=== PATIENT | female | born 2000 | race Caucasian/White ===

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

== ENCOUNTER 2022-03-07 12:55 | Emergency (ER) | payer MEDICAID ==
--- OUTSIDE RECORDS SUMMARY | 2022-03-07 13:53 | EXTERNAL MEDICAL SUMMARY RPT | Continuity of Care Document ---
:2000 Author Organization [facility] Address [address] [place] [address] Phone Allergies and Intolerances date description facility type (no date) No Known Drug Allergies [facility] (unkn own) Encounters No information. Functional Status No information. Immunizations No information. Medications No information. Problems No information. Procedures date description facility [id number] [facility] Results/Labs test date author facility value unit interpret ation Result panel 1 (unknown) (no (unknown) (unknown) (no value) (units (unk nown) date) unknown) (unknown) (no (unknown) (unknown) Date of Service: (units (unknown) date) 12/18/21 unknown) (unknown) (no (unknown) (unknown) (no value) (units (unk nown) date) unknown) (unknown) (no (unknown) (unknown) 1 applic topical (units (unknown) date) TID Qty: 15 6RF unknown) (unknown) (no (unknown) (unknown) 25 mg PO QID PRN (units (unknown) date) (Reason: anxiety) unknown) Qty: 30 0RF (unknown) (no (unknown) (unknown) 40 mg PO DAILY (units (unknown) date) Qty: 14 0RF unknown) (unknown) (no (unknown) (unknown) 40 mg PO Q DAY 4 (units (unknown) date) Days Qty: 0 0RF unknown) (unknown) (no (unknown) (unknown) 500 mg PO Q8H (units ( unknown) date) Qty: 30 0RF unknown) (unknown) (no (unknown) (unknown) 875 mg PO Q12H (units (unknown) date) Qty: 3 0RF unknown) (unknown) (no (unknown) (unknown) Allergies (units (unkn own) date) unknown) (unknown) (no (unknown) (unknown) Emergency Report (units (unknown) date) unknown) (unknown) (no (unknown) (unknown) [facility] (units (unknown) date) [address] unknown) [place] [address] (unknown) (no (unknown) (unknown) Previous Rx's (units ( unknown) date) unknown) (unknown) (no (unknown) (unknown) Rx Instructions: (units (unknown) date) unknown) (unknown) (no (unknown) (unknown) to dry patches, (units (unknown) date) NOT including the unknown) face (unknown) (no (unknown) (unknown) (no value) (units (unk nown) date) unknown) (unknown) (no (unknown) (unknown) amoxicillin 500 (units (unknown) date) mg capsule unknown) (unknown) (no (unknown) (unknown) amoxicillin-pot (units (unknown) date) clavulanate unknown) [Augmentin] 875 MG/125 MG tablet (unknown) (no (unknown) (unknown) hydroxyzine HCl (units (unknown) date) 25 mg tablet unknown) (unknown) (no (unknown) (unknown) prednisone 20 MG (units (unknown) date) tablet unknown) (unknown) (no (unknown) (unknown) prednisone 20 mg (units (unknown) date) tablet unknown) (unknown) (no (unknown) (unknown) triamcinolone (units ( unknown) date) acetonide 0.5 % unknown) ointment (unknown) (no (unknown) (unknown) Medication (units (unk nown) date) Instructions unknown) Recorded (unknown) (no (unknown) (unknown) (Augmentin) (units (un known) date) unknown) (unknown) (no (unknown) (unknown) Age/Sex: 21 / F (units (unknown) date) unknown) (unknown) (no (unknown) (unknown) Allergy/AdvReac (units (unknown) date) Type Severity unknown) Reaction Status Date / Time (unknown) (no (unknown) (unknown) : 2000 (units (unknown) date) Acct:[id number] unknown) (unknown) (no (unknown) (unknown) Departure (units (unkn own) date) unknown) (unknown) (no (unknown) (unknown) Discharge Plan (units (unknown) date) unknown) (unknown) (no (unknown) (unknown) ER Physician: (units ( unknown) date) Shilpi Shook unknown) PICTURE COPYIST (unknown) (no (unknown) (unknown) Eczema (units (unkno wn) date) unknown) (unknown) (no (unknown) (unknown) Keerthi Oleary MD (units (unknown) date) [Primary Care unknown) Provider] - (unknown) (no (unknown) (unknown) General (units (unkno wn) date) unknown) (unknown) (no (unknown) (unknown) HPI - Female (units (u nknown) date) Genitourinary unknown) (unknown) (no (unknown) (unknown) [id number] (units (unk nown) date) unknown) (unknown) (no (unknown) (unknown) Medical History (units (unknown) date) (Reviewed unknown) 09/27/21 @ 08:22 by Bryon Cali MD) (unknown) (no (unknown) (unknown) No Action (units (unkn own) date) unknown) (unknown) (no (unknown) (unknown) No Known Drug (units ( unknown) date) Allergies Allergy unknown) Verified 12/18/21 12:41 (unknown) (no (unknown) (unknown) Patient History (units (unknown) date) unknown) (unknown) (no (unknown) (unknown) Patient: (units (unkno wn) date) Amanda Davis unknown) A MR#: (unknown) (no (unknown) (unknown) Prescriptions: (units (unknown) date) unknown) (unknown) (no (unknown) (unknown) Referrals: (units (unk nown) date) unknown) (unknown) (no (unknown) (unknown) Related Data (units (u nknown) date) unknown) (unknown) (no (unknown) (unknown) Right carpal (units (u nknown) date) tunnel syndrome unknown) (unknown) (no (unknown) (unknown) Seasonal (units (unkno wn) date) allergies unknown) (unknown) (no (unknown) (unknown) Signed By: (units (unk nown) date) unknown) (unknown) (no (unknown) (unknown) Stated (units (unkno wn) date) complaint: PELVIC unknown) PAIN FEELS LIKE IUD IS OUT OF PLACE (unknown) (no (unknown) (unknown) Substance Use (units ( unknown) date) Type: does not unknown) use (unknown) (no (unknown) (unknown) Time Seen by (units (u nknown) date) Provider: unknown) 12/18/21 12:39 (unknown) (no (unknown) (unknown) alcohol intake (units (unknown) date) frequency: other unknown) (unknown) (no (unknown) (unknown) amoxicillin 500 (units (unknown) date) mg capsule 500 mg unknown) PO Q8H #30 cap 01/01/19 (unknown) (no (unknown) (unknown) amoxicillin 875 (units (unknown) date) mg-potassium 875 unknown) mg PO Q12H #3 tab 12/05/17 (unknown) (no (unknown) (unknown) clavulanate 125 (units (unknown) date) mg tablet unknown) (unknown) (no (unknown) (unknown) hydroxyzine HCl (units (unknown) date) 25 mg tablet 25 unknown) mg PO QID PRN #30 tab 07/08/21 (unknown) (no (unknown) (unknown) prednisone 20 mg (units (unknown) date) tablet 40 mg PO unknown) DAILY #14 tab 07/08/21 (unknown) (no (unknown) (unknown) prednisone 20 mg (units (unknown) date) tablet 40 mg PO Q unknown) DAY 4 Days #0 tab 12/05/17 (unknown) (no (unknown) (unknown) tobacco type: (units ( unknown) date) cigarettes and unknown) vaping (unknown) (no (unknown) (unknown) topical ointment (units (unknown) date) unknown) (unknown) (no (unknown) (unknown) triamcinolone (units ( unknown) date) acetonide 0.5 % 1 unknown) applic TOPICAL TID #15 g 07/08/21 Result panel 2 (unknown) (no (unknown) (unknown) (no value) (units (unk nown) date) unknown) (unknown) (no (unknown) (unknown) Date of Service: (units (unknown) date) 12/18/21 unknown) (unknown) (no (unknown) (unknown) (no value) (units (unk nown) date) unknown) (unknown) (no (unknown) (unknown) 1 applic topical (units (unknown) date) TID Qty: 15 6RF unknown) (unknown) (no (unknown) (unknown) 25 mg PO QID PRN (units (unknown) date) (Reason: anxiety) unknown) Qty: 30 0RF (unknown) (no (unknown) (unknown) 40 mg PO DAILY (units (unknown) date) Qty: 14 0RF unknown) (unknown) (no (unknown) (unknown) 40 mg PO Q DAY 4 (units (unknown) date) Days Qty: 0 0RF unknown) (unknown) (no (unknown) (unknown) 500 mg PO Q8H (units ( unknown) date) Qty: 30 0RF unknown) (unknown) (no (unknown) (unknown) 875 mg PO Q12H (units (unknown) date) Qty: 3 0RF unknown) (unknown) (no (unknown) (unknown) Allergies (units (unkn own) date) unknown) (unknown) (no (unknown) (unknown) Emergency Report (units (unknown) date) unknown) (unknown) (no (unknown) (unknown) [facility] (units (unknown) date) [address] [place] [address] unknown) [place] [address] (unknown) (no (unknown) (unknown) Previous Rx's (units ( unknown) date) unknown) (unknown) (no (unknown) (unknown) Rx Instructions: (units (unknown) date) unknown) (unknown) (no (unknown) (unknown) Vital Signs - 8 (units (unknown) date) hr unknown) (unknown) (no (unknown) (unknown) to dry patches, (units (unknown) date) NOT including the unknown) face (unknown) (no (unknown) (unknown) (no value) (units (unk nown) date) unknown) (unknown) (no (unknown) (unknown) amoxicillin 500 (units (unknown) date) mg capsule unknown) (unknown) (no (unknown) (unknown) amoxicillin-pot (units (unknown) date) clavulanate unknown) [Augmentin] 875 MG/125 MG tablet (unknown) (no (unknown) (unknown) hydroxyzine HCl (units (unknown) date) 25 mg tablet unknown) (unknown) (no (unknown) (unknown) prednisone 20 MG (units (unknown) date) tablet unknown) (unknown) (no (unknown) (unknown) prednisone 20 mg (units (unknown) date) tablet unknown) (unknown) (no (unknown) (unknown) triamcinolone (units ( unknown) date) acetonide 0.5 % unknown) ointment (unknown) (no (unknown) (unknown) 12/18/21 (units (unkno wn) date) unknown) (unknown) (no (unknown) (unknown) Medication (units (unk nown) date) Instructions unknown) Recorded (unknown) (no (unknown) (unknown) (Augmentin) (units (un known) date) unknown) (unknown) (no (unknown) (unknown) 12:36 (units (unkno wn) date) unknown) (unknown) (no (unknown) (unknown) Age/Sex: 21 / F (units (unknown) date) unknown) (unknown) (no (unknown) (unknown) Allergy/AdvReac (units (unknown) date) Type Severity unknown) Reaction Status Date / Time (unknown) (no (unknown) (unknown) Blood Pressure (units (unknown) date) 118/77 12/18/21 unknown) 12:36 (unknown) (no (unknown) (unknown) Blood Pressure (units (unknown) date) 118/77 unknown) (unknown) (no (unknown) (unknown) Chief complaint: (units (unknown) date) Urogenital-Female unknown) (unknown) (no (unknown) (unknown) Course (units (unkno wn) date) unknown) (unknown) (no (unknown) (unknown) : 2000 (units (unknown) date) Acct:[id number] unknown) (unknown) (no (unknown) (unknown) Departure (units (unkn own) date) unknown) (unknown) (no (unknown) (unknown) Discharge Plan (units (unknown) date) unknown) (unknown) (no (unknown) (unknown) ER Physician: (units ( unknown) date) Shilpi Shook unknown) PICTURE COPYIST (unknown) (no (unknown) (unknown) Eczema (units (unkno wn) date) unknown) (unknown) (no (unknown) (unknown) Exam (units (unkno wn) date) unknown) (unknown) (no (unknown) (unknown) Keerthi Oleary MD (units (unknown) date) [Primary Care unknown) Provider] - (unknown) (no (unknown) (unknown) General (units (unkno wn) date) unknown) (unknown) (no (unknown) (unknown) HPI - Female (units (u nknown) date) Genitourinary unknown) (unknown) (no (unknown) (unknown) Initial Vital (units ( unknown) date) Signs unknown) (unknown) (no (unknown) (unknown) Initial Vital (units ( unknown) date) Signs: unknown) (unknown) (no (unknown) (unknown) [id number] (units (unk nown) date) unknown) (unknown) (no (unknown) (unknown) Medical History (units (unknown) date) (Reviewed unknown) 09/27/21 @ 08:22 by Bryon Cali MD) (unknown) (no (unknown) (unknown) No Action (units (unkn own) date) unknown) (unknown) (no (unknown) (unknown) No Known Drug (units ( unknown) date) Allergies Allergy unknown) Verified 12/18/21 12:41 (unknown) (no (unknown) (unknown) Patient History (units (unknown) date) unknown) (unknown) (no (unknown) (unknown) Patient: (units (unkno wn) date) Amanda Davis unknown) A MR#: (unknown) (no (unknown) (unknown) Prescriptions: (units (unknown) date) unknown) (unknown) (no (unknown) (unknown) Pulse Oximetry (units (unknown) date) 97 12/18/21 unknown) 12:36 (unknown) (no (unknown) (unknown) Pulse Oximetry (units (unknown) date) 97 unknown) (unknown) (no (unknown) (unknown) Pulse Rate 101 (units (unknown) date) H 12/18/21 12:36 unknown) (unknown) (no (unknown) (unknown) Pulse Rate 101 H (units (unknown) date) unknown) (unknown) (no (unknown) (unknown) Referrals: (units (unk nown) date) unknown) (unknown) (no (unknown) (unknown) Related Data (units (u nknown) date) unknown) (unknown) (no (unknown) (unknown) Respiratory Rate (units (unknown) date) 17 12/18/21 unknown) 12:36 (unknown) (no (unknown) (unknown) Respiratory Rate (units (unknown) date) 17 unknown) (unknown) (no (unknown) (unknown) Right carpal (units (u nknown) date) tunnel syndrome unknown) (unknown) (no (unknown) (unknown) Seasonal (units (unkno wn) date) allergies unknown) (unknown) (no (unknown) (unknown) Signed By: (units (unk nown) date) unknown) (unknown) (no (unknown) (unknown) Stated (units (unkno wn) date) complaint: PELVIC unknown) PAIN FEELS LIKE IUD IS OUT OF PLACE (unknown) (no (unknown) (unknown) Substance Use (units ( unknown) date) Type: does not unknown) use (unknown) (no (unknown) (unknown) Temperature (units (un known) date) 97.5 F L unknown) 12/18/21 12:36 (unknown) (no (unknown) (unknown) Temperature 97.5 (units (unknown) date) F L unknown) (unknown) (no (unknown) (unknown) Time Seen by (units (u nknown) date) Provider: unknown) 12/18/21 12:39 (unknown) (no (unknown) (unknown) Vital Signs (units (un known) date) unknown) (unknown) (no (unknown) (unknown) Vital signs: (units (u nknown) date) unknown) (unknown) (no (unknown) (unknown) alcohol intake (units (unknown) date) frequency: other unknown) (unknown) (no (unknown) (unknown) amoxicillin 500 (units (unknown) date) mg capsule 500 mg unknown) PO Q8H #30 cap 01/01/19 (unknown) (no (unknown) (unknown) amoxicillin 875 (units (unknown) date) mg-potassium 875 unknown) mg PO Q12H #3 tab 12/05/17 (unknown) (no (unknown) (unknown) clavulanate 125 (units (unknown) date) mg tablet unknown) (unknown) (no (unknown) (unknown) hydroxyzine HCl (units (unknown) date) 25 mg tablet 25 unknown) mg PO QID PRN #30 tab 07/08/21 (unknown) (no (unknown) (unknown) prednisone 20 mg (units (unknown) date) tablet 40 mg PO unknown) DAILY #14 tab 07/08/21 (unknown) (no (unknown) (unknown) prednisone 20 mg (units (unknown) date) tablet 40 mg PO Q unknown) DAY 4 Days #0 tab 12/05/17 (unknown) (no (unknown) (unknown) tobacco type: (units ( unknown) date) cigarettes and unknown) vaping (unknown) (no (unknown) (unknown) topical ointment (units (unknown) date) unknown) (unknown) (no (unknown) (unknown) triamcinolone (units ( unknown) date) acetonide 0.5 % 1 unknown) applic TOPICAL TID #15 g 07/08/21 Result panel 3 (unknown) (no (unknown) (unknown) (no value) (units (unk nown) date) unknown) (unknown) (no (unknown) (unknown) Date of Service: (units (unknown) date) 12/18/21 unknown) (unknown) (no (unknown) (unknown) (no value) (units (unk nown) date) unknown) (unknown) (no (unknown) (unknown) 1 applic topical (units (unknown) date) TID Qty: 15 6RF unknown) (unknown) (no (unknown) (unknown) 25 mg PO QID PRN (units (unknown) date) (Reason: anxiety) unknown) Qty: 30 0RF (unknown) (no (unknown) (unknown) 40 mg PO DAILY (units (unknown) date) Qty: 14 0RF unknown) (unknown) (no (unknown) (unknown) 40 mg PO Q DAY 4 (units (unknown) date) Days Qty: 0 0RF unknown) (unknown) (no (unknown) (unknown) 500 mg PO Q8H (units ( unknown) date) Qty: 30 0RF unknown) (unknown) (no (unknown) (unknown) 875 mg PO Q12H (units (unknown) date) Qty: 3 0RF unknown) (unknown) (no (unknown) (unknown) Allergies (units (unkn own) date) unknown) (unknown) (no (unknown) (unknown) Emergency Report (units (unknown) date) unknown) (unknown) (no (unknown) (unknown) [facility] (units (unknown) date) [address] unknown) [place] [address] (unknown) (no (unknown) (unknown) Previous Rx's (units ( unknown) date) unknown) (unknown) (no (unknown) (unknown) Rx Instructions: (units (unknown) date) unknown) (unknown) (no (unknown) (unknown) Vital Signs - 8 (units (unknown) date) hr unknown) (unknown) (no (unknown) (unknown) to dry patches, (units (unknown) date) NOT including the unknown) face (unknown) (no (unknown) (unknown) (no value) (units (unk nown) date) unknown) (unknown) (no (unknown) (unknown) amoxicillin 500 (units (unknown) date) mg capsule unknown) (unknown) (no (unknown) (unknown) amoxicillin-pot (units (unknown) date) clavulanate unknown) [Augmentin] 875 MG/125 MG tablet (unknown) (no (unknown) (unknown) hydroxyzine HCl (units (unknown) date) 25 mg tablet unknown) (unknown) (no (unknown) (unknown) prednisone 20 MG (units (unknown) date) tablet unknown) (unknown) (no (unknown) (unknown) prednisone 20 mg (units (unknown) date) tablet unknown) (unknown) (no (unknown) (unknown) triamcinolone (units ( unknown) date) acetonide 0.5 % unknown) ointment (unknown) (no (unknown) (unknown) 12/18/21 (units (unkno wn) date) unknown) (unknown) (no (unknown) (unknown) Medication (units (unk nown) date) Instructions unknown) Recorded (unknown) (no (unknown) (unknown) (Augmentin) (units (un known) date) unknown) (unknown) (no (unknown) (unknown) 12:36 (units (unkno wn) date) unknown) (unknown) (no (unknown) (unknown) Age/Sex: 21 / F (units (unknown) date) unknown) (unknown) (no (unknown) (unknown) Allergy/AdvReac (units (unknown) date) Type Severity unknown) Reaction Status Date / Time (unknown) (no (unknown) (unknown) Blood Pressure (units (unknown) date) 118/77 12/18/21 unknown) 12:36 (unknown) (no (unknown) (unknown) Blood Pressure (units (unknown) date) 118 unknown) (unknown) (no (unknown) (unknown) Chief complaint: (units (unknown) date) Urogenital-Female unknown) (unknown) (no (unknown) (unknown) Course (units (unkno wn) date) unknown) (unknown) (no (unknown) (unknown) : 2000 (units (unknown) date) Acct:[id number] unknown) (unknown) (no (unknown) (unknown) Departure (units (unkn own) date) unknown) (unknown) (no (unknown) (unknown) Discharge Plan (units (unknown) date) unknown) (unknown) (no (unknown) (unknown) ER Physician: (units ( unknown) date) Shilpi Shook unknown) PICTURE COPYIST (unknown) (no (unknown) (unknown) Eczema (units (unkno wn) date) unknown) (unknown) (no (unknown) (unknown) Exam (units (unkno wn) date) unknown) (unknown) (no (unknown) (unknown) Keerthi Oleary MD (units (unknown) date) [Primary Care unknown) Provider] - (unknown) (no (unknown) (unknown) General (units (unkno wn) date) unknown) (unknown) (no (unknown) (unknown) HPI - Female (units (u nknown) date) Genitourinary unknown) (unknown) (no (unknown) (unknown) Initial Vital (units ( unknown) date) Signs unknown) (unknown) (no (unknown) (unknown) Initial Vital (units ( unknown) date) Signs: unknown) (unknown) (no (unknown) (unknown) [id number] (units (unk nown) date) unknown) (unknown) (no (unknown) (unknown) Medical History (units (unknown) date) (Reviewed unknown) 09/27/21 @ 08:22 by Bryon Cali MD) (unknown) (no (unknown) (unknown) No Action (units (unkn own) date) unknown) (unknown) (no (unknown) (unknown) No Known Drug (units ( unknown) date) Allergies Allergy unknown) Verified 12/18/21 12:41 (unknown) (no (unknown) (unknown) Patient History (units (unknown) date) unknown) (unknown) (no (unknown) (unknown) Patient: (units (unkno wn) date) Amanda Davis unknown) A MR#: (unknown) (no (unknown) (unknown) Prescriptions: (units (unknown) date) unknown) (unknown) (no (unknown) (unknown) Pulse Oximetry (units (unknown) date) 97 12/18/21 unknown) 12:36 (unknown) (no (unknown) (unknown) Pulse Oximetry (units (unknown) date) 97 unknown) (unknown) (no (unknown) (unknown) Pulse Rate 101 (units (unknown) date) H 12/18/21 12:36 unknown) (unknown) (no (unknown) (unknown) Pulse Rate 101 H (units (unknown) date) unknown) (unknown) (no (unknown) (unknown) Referrals: (units (unk nown) date) unknown) (unknown) (no (unknown) (unknown) Related Data (units (u nknown) date) unknown) (unknown) (no (unknown) (unknown) Respiratory Rate (units (unknown) date) 17 12/18/21 unknown) 12:36 (unknown) (no (unknown) (unknown) Respiratory Rate (units (unknown) date) 17 unknown) (unknown) (no (unknown) (unknown) Right carpal (units (u nknown) date) tunnel syndrome unknown) (unknown) (no (unknown) (unknown) Seasonal (units (unkno wn) date) allergies unknown) (unknown) (no (unknown) (unknown) Signed By: (units (unk nown) date) unknown) (unknown) (no (unknown) (unknown) Stated (units (unkno wn) date) complaint: PELVIC unknown) PAIN FEELS LIKE IUD IS OUT OF PLACE (unknown) (no (unknown) (unknown) Substance Use (units ( unknown) date) Type: does not unknown) use (unknown) (no (unknown) (unknown) Temperature (units (un known) date) 97.5 F L unknown) 12/18/21 12:36 (unknown) (no (unknown) (unknown) Temperature 97.5 (units (unknown) date) F L unknown) (unknown) (no (unknown) (unknown) Time Seen by (units (u nknown) date) Provider: unknown) 12/18/21 12:39 (unknown) (no (unknown) (unknown) Vital Signs (units (un known) date) unknown) (unknown) (no (unknown) (unknown) Vital signs: (units (u nknown) date) unknown) (unknown) (no (unknown) (unknown) alcohol intake (units (unknown) date) frequency: other unknown) (unknown) (no (unknown) (unknown) amoxicillin 500 (units (unknown) date) mg capsule 500 mg unknown) PO Q8H #30 cap 01/01/19 (unknown) (no (unknown) (unknown) amoxicillin 875 (units (unknown) date) mg-potassium 875 unknown) mg PO Q12H #3 tab 12/05/17 (unknown) (no (unknown) (unknown) clavulanate 125 (units (unknown) date) mg tablet unknown) (unknown) (no (unknown) (unknown) hydroxyzine HCl (units (unknown) date) 25 mg tablet 25 unknown) mg PO QID PRN #30 tab 07/08/21 (unknown) (no (unknown) (unknown) prednisone 20 mg (units (unknown) date) tablet 40 mg PO unknown) DAILY #14 tab 07/08/21 (unknown) (no (unknown) (unknown) prednisone 20 mg (units (unknown) date) tablet 40 mg PO Q unknown) DAY 4 Days #0 tab 12/05/17 (unknown) (no (unknown) (unknown) tobacco type: (units ( unknown) date) cigarettes and unknown) vaping (unknown) (no (unknown) (unknown) topical ointment (units (unknown) date) unknown) (unknown) (no (unknown) (unknown) triamcinolone (units ( unknown) date) acetonide 0.5 % 1 unknown) applic TOPICAL TID #15 g 07/08/21 Result panel 4 (unknown) (no date) (unknown) (unknown) Negative (units unknown) 37094-7 (unknown) (no date) (unknown) (unknown) Negative (units unknown) 18168-5 (unknown) (no date) (unknown) (unknown) Positive (units unknown) 08997-0 Result panel 5 (unknown) (no date) (unknown) (unknown) (no value) (units (un known) unknown) (unknown) (no date) (unknown) (unknown) Moderate (units (unkn own) poly WBCs unknown) (unknown) (no date) (unknown) (unknown) None seen (units (unk nown) unknown) Result panel 6 (unknown) (no (unknown) (unknown) (no value) (units (unk nown) date) unknown) (unknown) (no (unknown) (unknown) (no value) (units (unk nown) date) unknown) (unknown) (no (unknown) (unknown) *Please continue (units (unknown) date) to take your unknown) regular medications as directed. (unknown) (no (unknown) (unknown) Date of Service: (units (unknown) date) 12/18/21 unknown) (unknown) (no (unknown) (unknown) (no value) (units (unk nown) date) unknown) (unknown) (no (unknown) (unknown) 1 applic topical (units (unknown) date) TID Qty: 15 6RF unknown) (unknown) (no (unknown) (unknown) 100 mg PO BID 10 (units (unknown) date) Days Qty: 20 0RF unknown) (unknown) (no (unknown) (unknown) 25 mg PO QID PRN (units (unknown) date) (Reason: anxiety) unknown) Qty: 30 0RF (unknown) (no (unknown) (unknown) 40 mg PO DAILY (units (unknown) date) Qty: 14 0RF unknown) (unknown) (no (unknown) (unknown) 40 mg PO Q DAY 4 (units (unknown) date) Days Qty: 0 0RF unknown) (unknown) (no (unknown) (unknown) 500 mg PO Q8H (units ( unknown) date) Qty: 30 0RF unknown) (unknown) (no (unknown) (unknown) 875 mg PO Q12H (units (unknown) date) Qty: 3 0RF unknown) (unknown) (no (unknown) (unknown) Allergies (units (unkn own) date) unknown) (unknown) (no (unknown) (unknown) ED Orders (units (unkn own) date) unknown) (unknown) (no (unknown) (unknown) Emergency Report (units (unknown) date) unknown) (unknown) (no (unknown) (unknown) [facility] (units (unknown) date) [address] unknown) [place] [address] (unknown) (no (unknown) (unknown) Point of Care (units ( unknown) date) Testing unknown) (unknown) (no (unknown) (unknown) Previous Rx's (units ( unknown) date) unknown) (unknown) (no (unknown) (unknown) Rx Instructions: (units (unknown) date) unknown) (unknown) (no (unknown) (unknown) Stop: 12/18/21 (units (unknown) date) 13:13 unknown) (unknown) (no (unknown) (unknown) Stop: 12/18/21 (units (unknown) date) 13:17 unknown) (unknown) (no (unknown) (unknown) Vital Signs - 8 (units (unknown) date) hr unknown) (unknown) (no (unknown) (unknown) [ ] New (units (unkno wn) date) medication unknown) written as a paper prescription (unknown) (no (unknown) (unknown) [ ] No new (units (unk nown) date) medications given unknown) (unknown) (no (unknown) (unknown) [x ] New (units (unkno wn) date) medication unknown) prescriptions sent to your pharmacy: [ [facility]] (unknown) (no (unknown) (unknown) to dry patches, (units (unknown) date) NOT including the unknown) face (unknown) (no (unknown) (unknown) (no value) (units (unk nown) date) unknown) (unknown) (no (unknown) (unknown) amoxicillin 500 (units (unknown) date) mg capsule unknown) (unknown) (no (unknown) (unknown) amoxicillin-pot (units (unknown) date) clavulanate unknown) [Augmentin] 875 MG/125 MG tablet (unknown) (no (unknown) (unknown) doxycycline (units (un known) date) hyclate 100 mg unknown) tablet (unknown) (no (unknown) (unknown) hydroxyzine HCl (units (unknown) date) 25 mg tablet unknown) (unknown) (no (unknown) (unknown) prednisone 20 MG (units (unknown) date) tablet unknown) (unknown) (no (unknown) (unknown) prednisone 20 mg (units (unknown) date) tablet unknown) (unknown) (no (unknown) (unknown) triamcinolone (units ( unknown) date) acetonide 0.5 % unknown) ointment (unknown) (no (unknown) (unknown) 12/18/21 (units (unkno wn) date) unknown) (unknown) (no (unknown) (unknown) Acute cervicitis (units (unknown) date) unknown) (unknown) (no (unknown) (unknown) Medication (units (unk nown) date) Instructions unknown) Recorded (unknown) (no (unknown) (unknown) (Augmentin) (units (un known) date) unknown) (unknown) (no (unknown) (unknown) *If you do not (units (unknown) date) have a primary unknown) care provider please contact [phone] to (unknown) (no (unknown) (unknown) *Please follow (units (unknown) date) up with your unknown) primary care provider in 2-3 days, call for an (unknown) (no (unknown) (unknown) *Return to (units (unk nown) date) Emergency unknown) Department if you should have any new, worsening or (unknown) (no (unknown) (unknown) *What to do: (units (u nknown) date) unknown) (unknown) (no (unknown) (unknown) *You have been (units ( unknown) date) diagnosed with unknown) acute cervicitis. In this situation it is safe to (unknown) (no (unknown) (unknown) 12/18/21 12:56 (units (unknown) date) unknown) (unknown) (no (unknown) (unknown) 12/18/21 13:09 (units (unknown) date) unknown) (unknown) (no (unknown) (unknown) 12:36 (units (unkno wn) date) unknown) (unknown) (no (unknown) (unknown) Activity (units (unkno wn) date) Restrictions/Jerome unknown) tional Instructions: (unknown) (no (unknown) (unknown) Age/Sex: 21 / F (units (unknown) date) unknown) (unknown) (no (unknown) (unknown) Allergy/AdvReac (units (unknown) date) Type Severity unknown) Reaction Status Date / Time (unknown) (no (unknown) (unknown) Azithromycin (units (u nknown) date) (Azithromycin 250 unknown) Mg Tablet) 1,000 mg PO NOW ONE (unknown) (no (unknown) (unknown) Blood Pressure (units (unknown) date) 118/77 12/18/21 unknown) 12:36 (unknown) (no (unknown) (unknown) Blood Pressure (units (unknown) date) 118/77 unknown) (unknown) (no (unknown) (unknown) Ceftriaxone (units (un known) date) Sodium unknown) (Ceftriaxone 1,000 Mg Vial) 500 mg IM NOW ONE (unknown) (no (unknown) (unknown) Chief complaint: (units (unknown) date) Urogenital-Female unknown) (unknown) (no (unknown) (unknown) Chlamydia/Gonoc/ (units (unknown) date) Myco Genital Stat unknown) (unknown) (no (unknown) (unknown) Clinical (units (unkno wn) date) Impression: unknown) (unknown) (no (unknown) (unknown) Course (units (unkno wn) date) unknown) (unknown) (no (unknown) (unknown) : 2000 (units (unknown) date) Acct:[id number] unknown) (unknown) (no (unknown) (unknown) Departure (units (unkn own) date) unknown) (unknown) (no (unknown) (unknown) Discharge Plan (units (unknown) date) unknown) (unknown) (no (unknown) (unknown) Discontinued (units (u nknown) date) Medications unknown) (unknown) (no (unknown) (unknown) Dr. Anirudh johnson (units (unknown) date) primary care unknown) provider for another evaluation. (unknown) (no (unknown) (unknown) ER Physician: (units ( unknown) date) Shilpi Shook unknown) PICTURE COPYIST (unknown) (no (unknown) (unknown) Eczema (units (unkno wn) date) unknown) (unknown) (no (unknown) (unknown) Exam (units (unkno wn) date) unknown) (unknown) (no (unknown) (unknown) Keerthi Oleary MD (units (unknown) date) [Primary Care unknown) Provider] - (unknown) (no (unknown) (unknown) General (units (unkno wn) date) unknown) (unknown) (no (unknown) (unknown) HPI - Female (units (u nknown) date) Genitourinary unknown) (unknown) (no (unknown) (unknown) HPI Narrative: (units (unknown) date) unknown) (unknown) (no (unknown) (unknown) History of (units (unk nown) date) Present Illness unknown) (unknown) (no (unknown) (unknown) Initial Vital (units ( unknown) date) Signs unknown) (unknown) (no (unknown) (unknown) Initial Vital (units ( unknown) date) Signs: unknown) (unknown) (no (unknown) (unknown) Instructions: (units ( unknown) date) DI for Acute unknown) Cervicitis (unknown) (no (unknown) (unknown) Ketorolac (units (unkn own) date) Tromethamine unknown) (Ketorolac 30 Mg/Ml Vial) 15 mg IM NOW ONE (unknown) (no (unknown) (unknown) Lab Data (units (unkno wn) date) unknown) (unknown) (no (unknown) (unknown) Labs: (units (unkno wn) date) unknown) (unknown) (no (unknown) (unknown) Lidocaine HCl (units ( unknown) date) (Lidocaine 1% unknown) (Pf) 5 Ml) 2.1 ml INJ NOW ONE (unknown) (no (unknown) (unknown) [id number] (units (unk nown) date) unknown) (unknown) (no (unknown) (unknown) MDM - Female (units (u nknown) date) Genitourinary unknown) (unknown) (no (unknown) (unknown) Medical History (units (unknown) date) (Reviewed unknown) 09/27/21 @ 08:22 by Bryon Cali MD) (unknown) (no (unknown) (unknown) Metronidazole (units ( unknown) date) (Metronidazole unknown) 500 Mg Tablet) 2,000 mg PO NOW ONE (unknown) (no (unknown) (unknown) New (units (unkno wn) date) unknown) (unknown) (no (unknown) (unknown) No Action (units (unkn own) date) unknown) (unknown) (no (unknown) (unknown) No Known Drug (units ( unknown) date) Allergies Allergy unknown) Verified 12/18/21 12:41 (unknown) (no (unknown) (unknown) Ordered: (units (unkno wn) date) unknown) (unknown) (no (unknown) (unknown) Orders (units (unkno wn) date) unknown) (unknown) (no (unknown) (unknown) Patient (units (unkno wn) date) Disposition: Home unknown) (unknown) (no (unknown) (unknown) Patient History (units (unknown) date) unknown) (unknown) (no (unknown) (unknown) Patient: (units (unkno wn) date) KellyAmanda unknown) A MR#: (unknown) (no (unknown) (unknown) Test (units (unknown) date) Results unknown) Negative (unknown) (no (unknown) (unknown) Prescriptions: (units (unknown) date) unknown) (unknown) (no (unknown) (unknown) Pulse Oximetry (units (unknown) date) 97 12/18/21 unknown) 12:36 (unknown) (no (unknown) (unknown) Pulse Oximetry (units (unknown) date) 97 unknown) (unknown) (no (unknown) (unknown) Pulse Rate 101 (units (unknown) date) H 12/18/21 12:36 unknown) (unknown) (no (unknown) (unknown) Pulse Rate 101 H (units (unknown) date) unknown) (unknown) (no (unknown) (unknown) Referrals: (units (unk nown) date) unknown) (unknown) (no (unknown) (unknown) Related Data (units (u nknown) date) unknown) (unknown) (no (unknown) (unknown) Respiratory Rate (units (unknown) date) 17 12/18/21 unknown) 12:36 (unknown) (no (unknown) (unknown) Respiratory Rate (units (unknown) date) 17 unknown) (unknown) (no (unknown) (unknown) Right carpal (units (u nknown) date) tunnel syndrome unknown) (unknown) (no (unknown) (unknown) Seasonal (units (unkno wn) date) allergies unknown) (unknown) (no (unknown) (unknown) Signed By: (units (unk nown) date) unknown) (unknown) (no (unknown) (unknown) Stated (units (unkno wn) date) complaint: PELVIC unknown) PAIN FEELS LIKE IUD IS OUT OF PLACE (unknown) (no (unknown) (unknown) Substance Use (units ( unknown) date) Type: does not unknown) use (unknown) (no (unknown) (unknown) Temperature (units (un known) date) 97.5 F L unknown) 12/18/21 12:36 (unknown) (no (unknown) (unknown) Temperature 97.5 (units (unknown) date) F L unknown) (unknown) (no (unknown) (unknown) This is a (units (unkn own) date) 21-year-old unknown) female with history of cervicitis, bacterial vaginosis, (unknown) (no (unknown) (unknown) Time Seen by (units (u nknown) date) Provider: unknown) 12/18/21 12:39 (unknown) (no (unknown) (unknown) Vital Signs (units (un known) date) unknown) (unknown) (no (unknown) (unknown) Vital signs: (units (u nknown) date) unknown) (unknown) (no (unknown) (unknown) Wet Prep Tric BV (units (unknown) date) Brooke Stat unknown) (unknown) (no (unknown) (unknown) alcohol intake (units (unknown) date) frequency: other unknown) (unknown) (no (unknown) (unknown) also started (units (u nknown) date) last night. unknown) Patient states that she has an IUD, she is on your 3 (unknown) (no (unknown) (unknown) amoxicillin 500 (units (unknown) date) mg capsule 500 mg unknown) PO Q8H #30 cap 01/01/19 (unknown) (no (unknown) (unknown) amoxicillin 875 (units (unknown) date) mg-potassium 875 unknown) mg PO Q12H #3 tab 12/05/17 (unknown) (no (unknown) (unknown) and group B (units (un known) date) strep UTI who unknown) presents to the emergency department complaining of (unknown) (no (unknown) (unknown) any dysuria, (units (un known) date) urinary frequency unknown) or urgency, denies any vaginal pleuritis. States (unknown) (no (unknown) (unknown) appointment. Let (units (unknown) date) them know you unknown) were seen in the Emergency Department and that we (unknown) (no (unknown) (unknown) asked that you (units (unknown) date) be seen for unknown) follow-up. We will electronically transmit a record (unknown) (no (unknown) (unknown) better this (units (un known) date) evening or unknown) tomorrow. Please eat food with your medications to the (unknown) (no (unknown) (unknown) clavulanate 125 (units (unknown) date) mg tablet unknown) (unknown) (no (unknown) (unknown) concerning (units (unk nown) date) symptoms, such as unknown) [fever greater than 101F, chills, worsening pain, (unknown) (no (unknown) (unknown) denies any (units (unk nown) date) changes to her unknown) stool. Patient denies any back pain. Patient denies (unknown) (no (unknown) (unknown) doxycycline (units (un known) date) hyclate 100 mg unknown) tablet 100 mg PO BID 10 Days #20 tab 12/18/21 (unknown) (no (unknown) (unknown) establish care (units (unknown) date) with one of the unknown) [facility] primary care providers. (unknown) (no (unknown) (unknown) gonorrhea. We (units (unknown) date) will call you unknown) with any of those things grow out. Please stay (unknown) (no (unknown) (unknown) hydrated since (units (unknown) date) you had big doses unknown) of medication today. You should start to feel (unknown) (no (unknown) (unknown) hydroxyzine HCl (units (unknown) date) 25 mg tablet 25 unknown) mg PO QID PRN #30 tab 07/08/21 (unknown) (no (unknown) (unknown) not make her (units (u nknown) date) stomach sick. I unknown) hope you start feeling better soon. If use are (unknown) (no (unknown) (unknown) of a 5 year (units (un known) date) intrauterine unknown) device. Patient denies any fever, nausea or vomiting, (unknown) (no (unknown) (unknown) of today's note (units (unknown) date) if your PCP is in unknown) our system (unknown) (no (unknown) (unknown) pelvic pain this (units (unknown) date) started last unknown) night, with vaginal bleeding and cramping which (unknown) (no (unknown) (unknown) persistent (units (unk nown) date) vomiting or other unknown) bothersome symptoms] (unknown) (no (unknown) (unknown) place because (units ( unknown) date) she does not know unknown) why she would have pain otherwise. (unknown) (no (unknown) (unknown) prednisone 20 mg (units (unknown) date) tablet 40 mg PO unknown) DAILY #14 tab 07/08/21 (unknown) (no (unknown) (unknown) prednisone 20 mg (units (unknown) date) tablet 40 mg PO Q unknown) DAY 4 Days #0 tab 12/05/17 (unknown) (no (unknown) (unknown) still having (units (un known) date) symptoms after unknown) your antibiotics are complete, please follow-up with (unknown) (no (unknown) (unknown) that her vaginal (units (unknown) date) discharge is unknown) abnormal. She is concerned that her IUD is not in (unknown) (no (unknown) (unknown) tobacco type: (units ( unknown) date) cigarettes and unknown) vaping (unknown) (no (unknown) (unknown) topical ointment (units (unknown) date) unknown) (unknown) (no (unknown) (unknown) treat you for (units (u nknown) date) STDs instead of unknown) wait for the cultures to grow out and have you get (unknown) (no (unknown) (unknown) treated in the (units (unknown) date) emergency unknown) department for bacterial vaginosis, chlamydia, (unknown) (no (unknown) (unknown) triamcinolone (units ( unknown) date) acetonide 0.5 % 1 unknown) applic TOPICAL TID #15 g 07/08/21 (unknown) (no (unknown) (unknown) worse. Please (units (unknown) date) take doxycycline unknown) twice a day for the next 10 days. Today your Result panel 7 (unknown) (no (unknown) (unknown) (no value) (units (unk nown) date) unknown) (unknown) (no (unknown) (unknown) (no value) (units (unk nown) date) unknown) (unknown) (no (unknown) (unknown) *Please continue (units (unknown) date) to take your unknown) regular medications as directed. (unknown) (no (unknown) (unknown) Date of Service: (units (unknown) date) 12/18/21 unknown) (unknown) (no (unknown) (unknown) (no value) (units (unk nown) date) unknown) (unknown) (no (unknown) (unknown) 1 applic topical (units (unknown) date) TID Qty: 15 6RF unknown) (unknown) (no (unknown) (unknown) 100 mg PO BID 10 (units (unknown) date) Days Qty: 20 0RF unknown) (unknown) (no (unknown) (unknown) 25 mg PO QID PRN (units (unknown) date) (Reason: anxiety) unknown) Qty: 30 0RF (unknown) (no (unknown) (unknown) 40 mg PO DAILY (units (unknown) date) Qty: 14 0RF unknown) (unknown) (no (unknown) (unknown) 40 mg PO Q DAY 4 (units (unknown) date) Days Qty: 0 0RF unknown) (unknown) (no (unknown) (unknown) 500 mg PO Q8H (units ( unknown) date) Qty: 30 0RF unknown) (unknown) (no (unknown) (unknown) 875 mg PO Q12H (units (unknown) date) Qty: 3 0RF unknown) (unknown) (no (unknown) (unknown) Allergies (units (unkn own) date) unknown) (unknown) (no (unknown) (unknown) Documented by: (units (unknown) date) KBROTEM unknown) (unknown) (no (unknown) (unknown) ED Orders (units (unkn own) date) unknown) (unknown) (no (unknown) (unknown) Emergency Report (units (unknown) date) unknown) (unknown) (no (unknown) (unknown) [facility] (units (unknown) date) [address] unknown) [place] [id number] (unknown) (no (unknown) (unknown) Last Admin: (units (un known) date) 12/18/21 13:37 unknown) Dose: 1,000 mg (unknown) (no (unknown) (unknown) Last Admin: (units (un known) date) 12/18/21 13:37 unknown) Dose: 2,000 mg (unknown) (no (unknown) (unknown) Last Admin: (units (un known) date) 12/18/21 13:38 unknown) Dose: 500 mg (unknown) (no (unknown) (unknown) Last Admin: (units (un known) date) 12/18/21 13:40 unknown) Dose: 15 mg (unknown) (no (unknown) (unknown) Last Admin: (units (un known) date) 12/18/21 13:40 unknown) Dose: 2.1 ml (unknown) (no (unknown) (unknown) Point of Care (units ( unknown) date) Testing unknown) (unknown) (no (unknown) (unknown) Previous Rx's (units ( unknown) date) unknown) (unknown) (no (unknown) (unknown) Rx Instructions: (units (unknown) date) unknown) (unknown) (no (unknown) (unknown) Stop: 12/18/21 (units (unknown) date) 13:13 unknown) (unknown) (no (unknown) (unknown) Stop: 12/18/21 (units (unknown) date) 13:17 unknown) (unknown) (no (unknown) (unknown) Vital Signs - 8 (units (unknown) date) hr unknown) (unknown) (no (unknown) (unknown) [ ] New (units (unkno wn) date) medication unknown) written as a paper prescription (unknown) (no (unknown) (unknown) [ ] No new (units (unk nown) date) medications given unknown) (unknown) (no (unknown) (unknown) [x ] New (units (unkno wn) date) medication unknown) prescriptions sent to your pharmacy: [ [facility]] (unknown) (no (unknown) (unknown) to dry patches, (units (unknown) date) NOT including the unknown) face (unknown) (no (unknown) (unknown) (no value) (units (unk nown) date) unknown) (unknown) (no (unknown) (unknown) amoxicillin 500 (units (unknown) date) mg capsule unknown) (unknown) (no (unknown) (unknown) amoxicillin-pot (units (unknown) date) clavulanate unknown) [Augmentin] 875 MG/125 MG tablet (unknown) (no (unknown) (unknown) doxycycline (units (un known) date) hyclate 100 mg unknown) tablet (unknown) (no (unknown) (unknown) hydroxyzine HCl (units (unknown) date) 25 mg tablet unknown) (unknown) (no (unknown) (unknown) prednisone 20 MG (units (unknown) date) tablet unknown) (unknown) (no (unknown) (unknown) prednisone 20 mg (units (unknown) date) tablet unknown) (unknown) (no (unknown) (unknown) triamcinolone (units ( unknown) date) acetonide 0.5 % unknown) ointment (unknown) (no (unknown) (unknown) 12/18/21 (units (unkno wn) date) unknown) (unknown) (no (unknown) (unknown) Acute cervicitis (units (unknown) date) unknown) (unknown) (no (unknown) (unknown) Medication (units (unk nown) date) Instructions unknown) Recorded (unknown) (no (unknown) (unknown) (Augmentin) (units (un known) date) unknown) (unknown) (no (unknown) (unknown) *If you do not (units (unknown) date) have a primary unknown) care provider please contact [phone] to (unknown) (no (unknown) (unknown) *Please follow (units (unknown) date) up with your unknown) primary care provider in 2-3 days, call for an (unknown) (no (unknown) (unknown) *Return to (units (unk nown) date) Emergency unknown) Department if you should have any new, worsening or (unknown) (no (unknown) (unknown) *What to do: (units (u nknown) date) unknown) (unknown) (no (unknown) (unknown) *You have been (units ( unknown) date) diagnosed with unknown) acute cervicitis. In this situation it is safe to (unknown) (no (unknown) (unknown) 12/18/21 13:24 (units (unknown) date) unknown) (unknown) (no (unknown) (unknown) 12:36 12/18/21 (units (unknown) date) unknown) (unknown) (no (unknown) (unknown) 14:19 (units (unkno wn) date) unknown) (unknown) (no (unknown) (unknown) Activity (units (unkno wn) date) Restrictions/Jerome unknown) tional Instructions: (unknown) (no (unknown) (unknown) Age/Sex: 21 / F (units (unknown) date) unknown) (unknown) (no (unknown) (unknown) Allergy/AdvReac (units (unknown) date) Type Severity unknown) Reaction Status Date / Time (unknown) (no (unknown) (unknown) Azithromycin (units (u nknown) date) (Azithromycin 250 unknown) Mg Tablet) 1,000 mg PO NOW ONE (unknown) (no (unknown) (unknown) Blood Pressure (units (unknown) date) 118/77 12/18/21 unknown) 12:36 (unknown) (no (unknown) (unknown) Blood Pressure (units (unknown) date) 118/77 120/60 unknown) (unknown) (no (unknown) (unknown) Cardio: denies (units (unknown) date) chest pain, unknown) palpitations, edema (unknown) (no (unknown) (unknown) Ceftriaxone (units (un known) date) Sodium unknown) (Ceftriaxone 1,000 Mg Vial) 500 mg IM NOW ONE (unknown) (no (unknown) (unknown) Chief complaint: (units (unknown) date) Urogenital-Female unknown) (unknown) (no (unknown) (unknown) Chlamydia/Gonoc/ (units (unknown) date) Myco Genital Stat unknown) (unknown) (no (unknown) (unknown) Clinical (units (unkno wn) date) Impression: unknown) (unknown) (no (unknown) (unknown) Course (units (unkno wn) date) unknown) (unknown) (no (unknown) (unknown) : 2000 (units (unknown) date) Acct:[id number] unknown) (unknown) (no (unknown) (unknown) Departure (units (unkn own) date) unknown) (unknown) (no (unknown) (unknown) Discharge Plan (units (unknown) date) unknown) (unknown) (no (unknown) (unknown) Discontinued (units (u nknown) date) Medications unknown) (unknown) (no (unknown) (unknown) Dr. Anirudh johnson (units (unknown) date) primary care unknown) provider for another evaluation. (unknown) (no (unknown) (unknown) ER Physician: (units ( unknown) date) Shilpi Shook unknown) PICTURE COPYIST (unknown) (no (unknown) (unknown) Eczema (units (unkno wn) date) unknown) (unknown) (no (unknown) (unknown) Exam (units (unkno wn) date) unknown) (unknown) (no (unknown) (unknown) Eyes: denies (units (u nknown) date) visual changes, unknown) eye pain (unknown) (no (unknown) (unknown) GI: denies (units (unk nown) date) abdominal pain, unknown) nausea, vomiting, or diarrhea (unknown) (no (unknown) (unknown) : denies (units (unk nown) date) dysuria, unknown) hematuria, urinary retention, frequency or incontinence (unknown) (no (unknown) (unknown) 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 (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 (u nknown) date) complains of unknown) pelvic pressure, abnormal vaginal discharge, spotting (unknown) (no (unknown) (unknown) Keerthi Oleary MD (units (unknown) date) [Primary Care unknown) Provider] - (unknown) (no (unknown) (unknown) General (units (unkno wn) date) unknown) (unknown) (no (unknown) (unknown) General: denies (units (unknown) date) fever, chills, unknown) malaise, sweats, fatigue (unknown) (no (unknown) (unknown) HPI - Female (units (u nknown) date) Genitourinary unknown) (unknown) (no (unknown) (unknown) HPI Narrative: (units (unknown) date) unknown) (unknown) (no (unknown) (unknown) Head/Neck: (units (unk nown) date) denies headache, unknown) neck pain, dizziness (unknown) (no (unknown) (unknown) History of (units (unk nown) date) Present Illness unknown) (unknown) (no (unknown) (unknown) Initial Vital (units ( unknown) date) Signs unknown) (unknown) (no (unknown) (unknown) Initial Vital (units ( unknown) date) Signs: unknown) (unknown) (no (unknown) (unknown) Instructions: (units ( unknown) date) DI for Acute unknown) Cervicitis (unknown) (no (unknown) (unknown) Ketorolac (units (unkn own) date) Tromethamine unknown) (Ketorolac 30 Mg/Ml Vial) 15 mg IM NOW ONE (unknown) (no (unknown) (unknown) Lab Data (units (unkno wn) date) unknown) (unknown) (no (unknown) (unknown) Labs: (units (unkno wn) date) unknown) (unknown) (no (unknown) (unknown) Lidocaine HCl (units ( unknown) date) (Lidocaine 1% unknown) (Pf) 5 Ml) 2.1 ml INJ NOW ONE (unknown) (no (unknown) (unknown) [id number] (units (unk nown) date) unknown) (unknown) (no (unknown) (unknown) MDM - Female (units (u nknown) date) Genitourinary unknown) (unknown) (no (unknown) (unknown) MSK: denies (units (un known) date) joint pain, unknown) muscle weakness (unknown) (no (unknown) (unknown) Medical History (units (unknown) date) (Reviewed unknown) 09/27/21 @ 08:22 by Bryon Cali MD) (unknown) (no (unknown) (unknown) Metronidazole (units ( unknown) date) (Metronidazole unknown) 500 Mg Tablet) 2,000 mg PO NOW ONE (unknown) (no (unknown) (unknown) Narrative: (units (unk nown) date) unknown) (unknown) (no (unknown) (unknown) Neuro: denies (units ( unknown) date) numbness, unknown) tingling (unknown) (no (unknown) (unknown) New (units (unkno wn) date) unknown) (unknown) (no (unknown) (unknown) No Action (units (unkn own) date) unknown) (unknown) (no (unknown) (unknown) No Known Drug (units ( unknown) date) Allergies Allergy unknown) Verified 12/18/21 12:41 (unknown) (no (unknown) (unknown) Ordered: (units (unkno wn) date) unknown) (unknown) (no (unknown) (unknown) Orders (units (unkno wn) date) unknown) (unknown) (no (unknown) (unknown) Patient (units (unkno wn) date) Disposition: Home unknown) (unknown) (no (unknown) (unknown) Patient History (units (unknown) date) unknown) (unknown) (no (unknown) (unknown) Patient: (units (unkno wn) date) Amanda Davis unknown) A MR#: (unknown) (no (unknown) (unknown) Test (units (unknown) date) Results unknown) Negative (unknown) (no (unknown) (unknown) Prescriptions: (units (unknown) date) unknown) (unknown) (no (unknown) (unknown) Pulse Oximetry (units (unknown) date) 97 12/18/21 unknown) 12:36 (unknown) (no (unknown) (unknown) Pulse Oximetry (units (unknown) date) 97 98 unknown) (unknown) (no (unknown) (unknown) Pulse Rate 101 (units (unknown) date) H 12/18/21 12:36 unknown) (unknown) (no (unknown) (unknown) Pulse Rate 101 H (units (unknown) date) 99 H unknown) (unknown) (no (unknown) (unknown) Referrals: (units (unk nown) date) unknown) (unknown) (no (unknown) (unknown) Related Data (units (u nknown) date) unknown) (unknown) (no (unknown) (unknown) Respiratory Rate (units (unknown) date) 17 12/18/21 unknown) 12:36 (unknown) (no (unknown) (unknown) Respiratory Rate (units (unknown) date) 17 18 unknown) (unknown) (no (unknown) (unknown) Respiratory: (units (u nknown) date) denies dyspnea, unknown) cough, orthopnea (unknown) (no (unknown) (unknown) Review of (units (unkn own) date) Systems unknown) (unknown) (no (unknown) (unknown) Right carpal (units (u nknown) date) tunnel syndrome unknown) (unknown) (no (unknown) (unknown) Seasonal (units (unkno wn) date) allergies unknown) (unknown) (no (unknown) (unknown) Signed By: (units (unk nown) date) unknown) (unknown) (no (unknown) (unknown) Skin: denies (units (u nknown) date) rash, itching, unknown) skin lesions or other (unknown) (no (unknown) (unknown) Stated (units (unkno wn) date) complaint: PELVIC unknown) PAIN FEELS LIKE IUD IS OUT OF PLACE (unknown) (no (unknown) (unknown) Substance Use (units ( unknown) date) Type: does not unknown) use (unknown) (no (unknown) (unknown) Temperature (units (un known) date) 97.5 F L unknown) 12/18/21 12:36 (unknown) (no (unknown) (unknown) Temperature 97.5 (units (unknown) date) F L unknown) (unknown) (no (unknown) (unknown) This is a (units (unkn own) date) 21-year-old unknown) female with history of cervicitis, bacterial vaginosis, (unknown) (no (unknown) (unknown) Time Seen by (units (u nknown) date) Provider: unknown) 12/18/21 12:39 (unknown) (no (unknown) (unknown) Vital Signs (units (un known) date) unknown) (unknown) (no (unknown) (unknown) Vital signs: (units (u nknown) date) unknown) (unknown) (no (unknown) (unknown) Wet Prep Tric BV (units (unknown) date) Brooke Stat unknown) (unknown) (no (unknown) (unknown) alcohol intake (units (unknown) date) frequency: other unknown) (unknown) (no (unknown) (unknown) also started (units (u nknown) date) last night. unknown) Patient states that she has an IUD, she is on your 3 (unknown) (no (unknown) (unknown) amoxicillin 500 (units (unknown) date) mg capsule 500 mg unknown) PO Q8H #30 cap 01/01/19 (unknown) (no (unknown) (unknown) amoxicillin 875 (units (unknown) date) mg-potassium 875 unknown) mg PO Q12H #3 tab 12/05/17 (unknown) (no (unknown) (unknown) and cramping (units (u nknown) date) unknown) (unknown) (no (unknown) (unknown) and group B (units (un known) date) strep UTI who unknown) presents to the emergency department complaining of (unknown) (no (unknown) (unknown) any dysuria, (units (un known) date) urinary frequency unknown) or urgency, denies any vaginal pleuritis. States (unknown) (no (unknown) (unknown) appointment. Let (units (unknown) date) them know you unknown) were seen in the Emergency Department and that we (unknown) (no (unknown) (unknown) asked that you (units (unknown) date) be seen for unknown) follow-up. We will electronically transmit a record (unknown) (no (unknown) (unknown) better this (units (un known) date) evening or unknown) tomorrow. Please eat food with your medications to the (unknown) (no (unknown) (unknown) clavulanate 125 (units (unknown) date) mg tablet unknown) (unknown) (no (unknown) (unknown) concerning (units (unk nown) date) symptoms, such as unknown) [fever greater than 101F, chills, worsening pain, (unknown) (no (unknown) (unknown) denies any (units (unk nown) date) changes to her unknown) stool. Patient denies any back pain. Patient denies (unknown) (no (unknown) (unknown) doxycycline (units (un known) date) hyclate 100 mg unknown) tablet 100 mg PO BID 10 Days #20 tab 12/18/21 (unknown) (no (unknown) (unknown) establish care (units (unknown) date) with one of the unknown) [facility] primary care providers. (unknown) (no (unknown) (unknown) gonorrhea. We (units (unknown) date) will call you unknown) with any of those things grow out. Please stay (unknown) (no (unknown) (unknown) hydrated since (units (unknown) date) you had big doses unknown) of medication today. You should start to feel (unknown) (no (unknown) (unknown) hydroxyzine HCl (units (unknown) date) 25 mg tablet 25 unknown) mg PO QID PRN #30 tab 07/08/21 (unknown) (no (unknown) (unknown) not make her (units (u nknown) date) stomach sick. I unknown) hope you start feeling better soon. If use are (unknown) (no (unknown) (unknown) of a 5 year (units (un known) date) intrauterine unknown) device. Patient denies any fever, nausea or vomiting, (unknown) (no (unknown) (unknown) of today's note (units (unknown) date) if your PCP is in unknown) our system (unknown) (no (unknown) (unknown) pelvic pain this (units (unknown) date) started last unknown) night, with vaginal bleeding and cramping which (unknown) (no (unknown) (unknown) persistent (units (unk nown) date) vomiting or other unknown) bothersome symptoms] (unknown) (no (unknown) (unknown) place because (units ( unknown) date) she does not know unknown) why she would have pain otherwise. (unknown) (no (unknown) (unknown) prednisone 20 mg (units (unknown) date) tablet 40 mg PO unknown) DAILY #14 tab 07/08/21 (unknown) (no (unknown) (unknown) prednisone 20 mg (units (unknown) date) tablet 40 mg PO Q unknown) DAY 4 Days #0 tab 12/05/17 (unknown) (no (unknown) (unknown) still having (units (un known) date) symptoms after unknown) your antibiotics are complete, please follow-up with (unknown) (no (unknown) (unknown) that her vaginal (units (unknown) date) discharge is unknown) abnormal. She is concerned that her IUD is not in (unknown) (no (unknown) (unknown) tobacco type: (units ( unknown) date) cigarettes and unknown) vaping (unknown) (no (unknown) (unknown) topical ointment (units (unknown) date) unknown) (unknown) (no (unknown) (unknown) treat you for (units (u nknown) date) STDs instead of unknown) wait for the cultures to grow out and have you get (unknown) (no (unknown) (unknown) treated in the (units (unknown) date) emergency unknown) department for bacterial vaginosis, chlamydia, (unknown) (no (unknown) (unknown) triamcinolone (units ( unknown) date) acetonide 0.5 % 1 unknown) applic TOPICAL TID #15 g 07/08/21 (unknown) (no (unknown) (unknown) worse. Please (units (unknown) date) take doxycycline unknown) twice a day for the next 10 days. Today your Result panel 8 (unknown) (no (unknown) (unknown) (no value) (units (unk nown) date) unknown) (unknown) (no (unknown) (unknown) (no value) (units (unk nown) date) unknown) (unknown) (no (unknown) (unknown) *Please continue (units (unknown) date) to take your unknown) regular medications as directed. (unknown) (no (unknown) (unknown) Date of Service: (units (unknown) date) 12/18/21 unknown) (unknown) (no (unknown) (unknown) (no value) (units (unk nown) date) unknown) (unknown) (no (unknown) (unknown) <Electronically (units (unknown) date) signed by Shilpi batista) Argelia [facility] [place] Crew> (unknown) (no (unknown) (unknown) 12/18/21 1542 (units ( unknown) date) unknown) (unknown) (no (unknown) (unknown) 1 applic topical (units (unknown) date) TID Qty: 15 6RF unknown) (unknown) (no (unknown) (unknown) 100 mg PO BID 10 (units (unknown) date) Days Qty: 20 0RF unknown) (unknown) (no (unknown) (unknown) 25 mg PO QID PRN (units (unknown) date) (Reason: anxiety) unknown) Qty: 30 0RF (unknown) (no (unknown) (unknown) 40 mg PO DAILY (units (unknown) date) Qty: 14 0RF unknown) (unknown) (no (unknown) (unknown) 40 mg PO Q DAY 4 (units (unknown) date) Days Qty: 0 0RF unknown) (unknown) (no (unknown) (unknown) 500 mg PO Q8H (units ( unknown) date) Qty: 30 0RF unknown) (unknown) (no (unknown) (unknown) 875 mg PO Q12H (units (unknown) date) Qty: 3 0RF unknown) (unknown) (no (unknown) (unknown) Allergies (units (unkn own) date) unknown) (unknown) (no (unknown) (unknown) Documented by: (units (unknown) date) KBROTEM unknown) (unknown) (no (unknown) (unknown) ED Orders (units (unkn own) date) unknown) (unknown) (no (unknown) (unknown) Emergency Report (units (unknown) date) unknown) (unknown) (no (unknown) (unknown) [facility] (units (unknown) date) [address] unknown) [place] [address] (unknown) (no (unknown) (unknown) Last Admin: (units (un known) date) 12/18/21 13:37 unknown) Dose: 1,000 mg (unknown) (no (unknown) (unknown) Last Admin: (units (un known) date) 12/18/21 13:37 unknown) Dose: 2,000 mg (unknown) (no (unknown) (unknown) Last Admin: (units (un known) date) 12/18/21 13:38 unknown) Dose: 500 mg (unknown) (no (unknown) (unknown) Last Admin: (units (un known) date) 12/18/21 13:40 unknown) Dose: 15 mg (unknown) (no (unknown) (unknown) Last Admin: (units (un known) date) 12/18/21 13:40 unknown) Dose: 2.1 ml (unknown) (no (unknown) (unknown) Point of Care (units ( unknown) date) Testing unknown) (unknown) (no (unknown) (unknown) Previous Rx's (units ( unknown) date) unknown) (unknown) (no (unknown) (unknown) Rx Instructions: (units (unknown) date) unknown) (unknown) (no (unknown) (unknown) Stop: 12/18/21 (units (unknown) date) 13:13 unknown) (unknown) (no (unknown) (unknown) Stop: 12/18/21 (units (unknown) date) 13:17 unknown) (unknown) (no (unknown) (unknown) Vital Signs - 8 (units (unknown) date) hr unknown) (unknown) (no (unknown) (unknown) [ ] New (units (unkno wn) date) medication written unknown) as a paper prescription (unknown) (no (unknown) (unknown) [ ] No new (units (unk nown) date) medications given unknown) (unknown) (no (unknown) (unknown) [x ] New (units (unkno wn) date) medication unknown) prescriptions sent to your pharmacy: [ [facility]] (unknown) (no (unknown) (unknown) to dry patches, (units (unknown) date) NOT including the unknown) face (unknown) (no (unknown) (unknown) (no value) (units (unk nown) date) unknown) (unknown) (no (unknown) (unknown) amoxicillin 500 (units (unknown) date) mg capsule unknown) (unknown) (no (unknown) (unknown) amoxicillin-pot (units (unknown) date) clavulanate unknown) [Augmentin] 875 MG/125 MG tablet (unknown) (no (unknown) (unknown) doxycycline (units (un known) date) hyclate 100 mg unknown) tablet (unknown) (no (unknown) (unknown) hydroxyzine HCl (units (unknown) date) 25 mg tablet unknown) (unknown) (no (unknown) (unknown) prednisone 20 MG (units (unknown) date) tablet unknown) (unknown) (no (unknown) (unknown) prednisone 20 mg (units (unknown) date) tablet unknown) (unknown) (no (unknown) (unknown) triamcinolone (units ( unknown) date) acetonide 0.5 % unknown) ointment (unknown) (no (unknown) (unknown) 12/18/21 (units (unkno wn) date) unknown) (unknown) (no (unknown) (unknown) Acute cervicitis (units (unknown) date) unknown) (unknown) (no (unknown) (unknown) Medication (units (unk nown) date) Instructions unknown) Recorded (unknown) (no (unknown) (unknown) (Augmentin) (units (un known) date) unknown) (unknown) (no (unknown) (unknown) *If you do not (units (unknown) date) have a primary unknown) care provider please contact [phone] to (unknown) (no (unknown) (unknown) *Please follow up (units (unknown) date) with your primary unknown) care provider in 2-3 days, call for an (unknown) (no (unknown) (unknown) *Return to (units (unk nown) date) Emergency unknown) Department if you should have any new, worsening or (unknown) (no (unknown) (unknown) *What to do: (units (u nknown) date) unknown) (unknown) (no (unknown) (unknown) *You have been (units ( unknown) date) diagnosed with unknown) acute cervicitis. In this situation it is safe to (unknown) (no (unknown) (unknown) 12/18/21 13:24 (units (unknown) date) unknown) (unknown) (no (unknown) (unknown) 12:36 12/18/21 (units (unknown) date) unknown) (unknown) (no (unknown) (unknown) 14:19 (units (unkno wn) date) unknown) (unknown) (no (unknown) (unknown) Activity (units (unkno wn) date) Restrictions/Addit unknown) ional Instructions: (unknown) (no (unknown) (unknown) Age/Sex: 21 / F (units (unknown) date) unknown) (unknown) (no (unknown) (unknown) Allergy/AdvReac (units (unknown) date) Type Severity unknown) Reaction Status Date / Time (unknown) (no (unknown) (unknown) Azithromycin (units (u nknown) date) (Azithromycin 250 unknown) Mg Tablet) 1,000 mg PO NOW ONE (unknown) (no (unknown) (unknown) Blood Pressure (units (unknown) date) 118/77 12/18/21 unknown) 12:36 (unknown) (no (unknown) (unknown) Blood Pressure (units (unknown) date) 118/77 120/60 unknown) (unknown) (no (unknown) (unknown) Cardio: denies (units (unknown) date) chest pain, unknown) palpitations, edema (unknown) (no (unknown) (unknown) Cardiovascular: (units (unknown) date) regular rate and unknown) rhythm, no peripheral edema, warm extremities (unknown) (no (unknown) (unknown) Ceftriaxone (units (un known) date) Sodium unknown) (Ceftriaxone 1,000 Mg Vial) 500 mg IM NOW ONE (unknown) (no (unknown) (unknown) Chief complaint: (units (unknown) date) Urogenital-Female unknown) (unknown) (no (unknown) (unknown) Chlamydia/Gonoc/M (units (unknown) date) yco Genital Stat unknown) (unknown) (no (unknown) (unknown) Clinical (units (unkno wn) date) Impression: unknown) (unknown) (no (unknown) (unknown) Course (units (unkno wn) date) unknown) (unknown) (no (unknown) (unknown) : 2000 (units (unknown) date) Acct:[id number] unknown) (unknown) (no (unknown) (unknown) Departure (units (unkn own) date) unknown) (unknown) (no (unknown) (unknown) Discharge Plan (units (unknown) date) unknown) (unknown) (no (unknown) (unknown) Discontinued (units (u nknown) date) Medications unknown) (unknown) (no (unknown) (unknown) Dr. Anirudh johnson (units (unknown) date) primary care unknown) provider for another evaluation. (unknown) (no (unknown) (unknown) ER Physician: (units ( unknown) date) Shilpi Shook unknown) PICTURE COPYIST (unknown) (no (unknown) (unknown) ER precautions for (units (unknown) date) any new or unknown) worsening symptoms. Patient understands to follow (unknown) (no (unknown) (unknown) Eczema (units (unkno wn) date) unknown) (unknown) (no (unknown) (unknown) Exam (units (unkno wn) date) unknown) (unknown) (no (unknown) (unknown) Exam Narrative: (units (unknown) date) unknown) (unknown) (no (unknown) (unknown) Eyes: denies (units (u nknown) date) visual changes, unknown) eye pain (unknown) (no (unknown) (unknown) Eyes: pupils (units (u nknown) date) equal round and unknown) reactive, EOMI, conjunctiva normal (unknown) (no (unknown) (unknown) GI: abdomen soft, (units (unknown) date) nontender to unknown) palpation, nondistended, no masses, no exquisite (unknown) (no (unknown) (unknown) GI: denies (units (unk nown) date) abdominal pain, unknown) nausea, vomiting, or diarrhea (unknown) (no (unknown) (unknown) : denies (units (unk nown) date) dysuria, unknown) hematuria, urinary retention, frequency or incontinence (unknown) (no (unknown) (unknown) 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 (units (u nknown) date) complains of unknown) pelvic pressure, abnormal vaginal discharge, spotting (unknown) (no (unknown) (unknown) 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: Pelvic exam (units (unknown) date) is completed, unknown) patient's cervix is erythematous, purulence (unknown) (no (unknown) (unknown) Keerthi Oleary MD (units (unknown) date) [Primary Care unknown) Provider] - (unknown) (no (unknown) (unknown) General (units (unkno wn) date) unknown) (unknown) (no (unknown) (unknown) General: (units (o wn) date) cooperative, unknown) comfortable, in no acute distress, well developed and well (unknown) (no (unknown) (unknown) General: denies (units (unknown) date) fever, chills, unknown) malaise, sweats, fatigue (unknown) (no (unknown) (unknown) HPI - Female (units (u nknown) date) Genitourinary unknown) (unknown) (no (unknown) (unknown) HPI Narrative: (units (unknown) date) unknown) (unknown) (no (unknown) (unknown) Head/Neck: denies (units (unknown) date) headache, neck unknown) pain, dizziness (unknown) (no (unknown) (unknown) Head: atraumatic, (units (unknown) date) symmetrical facial unknown) expressions (unknown) (no (unknown) (unknown) History of (units (unk nown) date) Present Illness unknown) (unknown) (no (unknown) (unknown) Independently (units ( unknown) date) reviewed vitals unknown) signs and nursing notes. (unknown) (no (unknown) (unknown) Initial Vital (units ( unknown) date) Signs unknown) (unknown) (no (unknown) (unknown) Initial Vital (units ( unknown) date) Signs: unknown) (unknown) (no (unknown) (unknown) Instructions: DI (units (unknown) date) for Acute unknown) Cervicitis (unknown) (no (unknown) (unknown) Ketorolac (units (unkn own) date) Tromethamine unknown) (Ketorolac 30 Mg/Ml Vial) 15 mg IM NOW ONE (unknown) (no (unknown) (unknown) Lab Data (units (unkno wn) date) unknown) (unknown) (no (unknown) (unknown) Labs: (units (unkno wn) date) unknown) (unknown) (no (unknown) (unknown) Lidocaine HCl (units ( unknown) date) (Lidocaine 1% (Pf) unknown) 5 Ml) 2.1 ml INJ NOW ONE (unknown) (no (unknown) (unknown) [id number] (units (unk nown) date) unknown) (unknown) (no (unknown) (unknown) MDM - Female (units (u nknown) date) Genitourinary unknown) (unknown) (no (unknown) (unknown) MDM Narrative (units ( unknown) date) unknown) (unknown) (no (unknown) (unknown) MSK: denies joint (units (unknown) date) pain, muscle unknown) weakness (unknown) (no (unknown) (unknown) MSK: moves all (units ( unknown) date) extremities, unknown) ambulatory w/steady gait, neurovascularly intact, no (unknown) (no (unknown) (unknown) Medical History (units (unknown) date) (Reviewed 09/27/21 unknown) @ 08:22 by Bryon Cali MD) (unknown) (no (unknown) (unknown) Medical decision (units (unknown) date) making narrative: unknown) (unknown) (no (unknown) (unknown) Metronidazole (units ( unknown) date) (Metronidazole 500 unknown) Mg Tablet) 2,000 mg PO NOW ONE (unknown) (no (unknown) (unknown) Mouth/Throat: (units ( unknown) date) uvula midline, unknown) moist mucus membranes (unknown) (no (unknown) (unknown) Narrative (units (unkn own) date) unknown) (unknown) (no (unknown) (unknown) Narrative: (units (unk nown) date) unknown) (unknown) (no (unknown) (unknown) Neck: supple, (units ( unknown) date) atraumatic, unknown) without lymphadenopathy. (unknown) (no (unknown) (unknown) Neuro: denies (units ( unknown) date) numbness, tingling unknown) (unknown) (no (unknown) (unknown) Neuro: normal (units ( unknown) date) speech and unknown) cognition, A+O x3, normal tone (unknown) (no (unknown) (unknown) New (units (unkno wn) date) unknown) (unknown) (no (unknown) (unknown) No Action (units (unkn own) date) unknown) (unknown) (no (unknown) (unknown) No Known Drug (units ( unknown) date) Allergies Allergy unknown) Verified 12/18/21 12:41 (unknown) (no (unknown) (unknown) Nose: nares (units (un known) date) patent, no unknown) rhinorrhea (unknown) (no (unknown) (unknown) Ordered: (units (unkno wn) date) unknown) (unknown) (no (unknown) (unknown) Orders (units (unkno wn) date) unknown) (unknown) (no (unknown) (unknown) Patient (units (unkno wn) date) Disposition: Home unknown) (unknown) (no (unknown) (unknown) Patient History (units (unknown) date) unknown) (unknown) (no (unknown) (unknown) Patient has been (units (unknown) date) informed of unknown) results. Patient has been given strict return to (unknown) (no (unknown) (unknown) Patient: (units (unkno wn) date) Amanda Davis unknown) MR#: (unknown) (no (unknown) (unknown) Test (units (unknown) date) Results unknown) Negative (unknown) (no (unknown) (unknown) Prescriptions: (units (unknown) date) unknown) (unknown) (no (unknown) (unknown) Psych: mental (units ( unknown) date) status is grossly unknown) normal, congruent mood, normal affect, pleasant (unknown) (no (unknown) (unknown) Pulse Oximetry (units (unknown) date) 97 12/18/21 unknown) 12:36 (unknown) (no (unknown) (unknown) Pulse Oximetry 97 (units (unknown) date) 98 unknown) (unknown) (no (unknown) (unknown) Pulse Rate 101 H (units (unknown) date) 12/18/21 12:36 unknown) (unknown) (no (unknown) (unknown) Pulse Rate 101 H (units (unknown) date) 99 H unknown) (unknown) (no (unknown) (unknown) Referrals: (units (unk nown) date) unknown) (unknown) (no (unknown) (unknown) Related Data (units (u nknown) date) unknown) (unknown) (no (unknown) (unknown) Respiratory Rate (units (unknown) date) 17 12/18/21 unknown) 12:36 (unknown) (no (unknown) (unknown) Respiratory Rate (units (unknown) date) 17 18 unknown) (unknown) (no (unknown) (unknown) Respiratory: (units (u nknown) date) denies dyspnea, unknown) cough, orthopnea (unknown) (no (unknown) (unknown) Respiratory: (units (u nknown) date) normal effort, unknown) able to speak in complete sentences, no audible (unknown) (no (unknown) (unknown) Review of Systems (units (unknown) date) unknown) (unknown) (no (unknown) (unknown) Right carpal (units (u nknown) date) tunnel syndrome unknown) (unknown) (no (unknown) (unknown) Seasonal (units (unkno wn) date) allergies unknown) (unknown) (no (unknown) (unknown) Signed By: (units (unk nown) date) unknown) (unknown) (no (unknown) (unknown) Skin: brisk (units (un known) date) capillary refill, unknown) no rash, no erythema (unknown) (no (unknown) (unknown) Skin: denies (units (u nknown) date) rash, itching, unknown) skin lesions or other (unknown) (no (unknown) (unknown) Stated complaint: (units (unknown) date) PELVIC PAIN FEELS unknown) LIKE IUD IS OUT OF PLACE (unknown) (no (unknown) (unknown) Substance Use (units ( unknown) date) Type: does not use unknown) (unknown) (no (unknown) (unknown) Temperature 97.5 (units (unknown) date) F L 12/18/21 unknown) 12:36 (unknown) (no (unknown) (unknown) Temperature 97.5 (units (unknown) date) F L unknown) (unknown) (no (unknown) (unknown) This is a (units (unkn own) date) 21-year-old female unknown) who presents to the emergency department (unknown) (no (unknown) (unknown) This is a (units (unkn own) date) 21-year-old female unknown) with history of cervicitis, bacterial vaginosis, (unknown) (no (unknown) (unknown) Time Seen by (units (u nknown) date) Provider: 12/18/21 unknown) 12:39 (unknown) (no (unknown) (unknown) Trichomonas. (units (un known) date) Independence decision unknown) making between patient and myself and patient opts (unknown) (no (unknown) (unknown) Vital Signs (units (un known) date) unknown) (unknown) (no (unknown) (unknown) Vital signs: (units (u nknown) date) unknown) (unknown) (no (unknown) (unknown) Wet Prep Tric BV (units (unknown) date) Brooke Stat unknown) (unknown) (no (unknown) (unknown) acute cervicitis, (units (unknown) date) Trichomonas, unknown) bacterial vaginosis and states that she is (unknown) (no (unknown) (unknown) adnexa (units (unkno wn) date) unknown) (unknown) (no (unknown) (unknown) alcohol intake (units (unknown) date) frequency: other unknown) (unknown) (no (unknown) (unknown) also started last (units (unknown) date) night. Patient unknown) states that she has an IUD, she is on your 3 (unknown) (no (unknown) (unknown) amoxicillin 500 (units (unknown) date) mg capsule 500 mg unknown) PO Q8H #30 cap 01/01/19 (unknown) (no (unknown) (unknown) amoxicillin 875 (units (unknown) date) mg-potassium 875 unknown) mg PO Q12H #3 tab 12/05/17 (unknown) (no (unknown) (unknown) and agrees to (units (u nknown) date) discharge home. unknown) All questions and concerns answered at this time. (unknown) (no (unknown) (unknown) and cooperative (units (unknown) date) unknown) (unknown) (no (unknown) (unknown) and cramping (units (u nknown) date) unknown) (unknown) (no (unknown) (unknown) and group B strep (units (unknown) date) UTI who presents unknown) to the emergency department complaining of (unknown) (no (unknown) (unknown) and purulent (units (u nknown) date) discharge are both unknown) present. (unknown) (no (unknown) (unknown) any dysuria, (units (un known) date) urinary frequency unknown) or urgency, denies any vaginal pleuritis. States (unknown) (no (unknown) (unknown) appointment. Let (units (unknown) date) them know you were unknown) seen in the Emergency Department and that we (unknown) (no (unknown) (unknown) asked that you be (units (unknown) date) seen for unknown) follow-up. We will electronically transmit a record (unknown) (no (unknown) (unknown) better this (units (un known) date) evening or unknown) tomorrow. Please eat food with your medications to the (unknown) (no (unknown) (unknown) clavulanate 125 (units (unknown) date) mg tablet unknown) (unknown) (no (unknown) (unknown) complaining of (units ( unknown) date) pelvic pain and unknown) abnormal vaginal discharge. She has a history of (unknown) (no (unknown) (unknown) concerning (units (unk nown) date) symptoms, such as unknown) [fever greater than 101F, chills, worsening pain, (unknown) (no (unknown) (unknown) cultured, wet (units ( unknown) date) mount completed unknown) and genital cultures are pending patient (unknown) (no (unknown) (unknown) denies any (units (unk nown) date) changes to her unknown) stool. Patient denies any back pain. Patient denies (unknown) (no (unknown) (unknown) discharge coming (units (unknown) date) from os, IUD unknown) strings appear intact and coming from the cervical (unknown) (no (unknown) (unknown) discharge home. (units (unknown) date) Vital signs are unknown) stable on repeat examination is unremarkable. (unknown) (no (unknown) (unknown) doxycycline (units (un known) date) hyclate 100 mg unknown) tablet 100 mg PO BID 10 Days #20 tab 12/18/21 (unknown) (no (unknown) (unknown) erythematous (units (u nknown) date) cervix, purulence unknown) discharge coming from cervical os, this was (unknown) (no (unknown) (unknown) establish care (units (unknown) date) with one of the unknown) [facility] primary care providers. (unknown) (no (unknown) (unknown) gonorrhea. We (units (unknown) date) will call you with unknown) any of those things grow out. Please stay (unknown) (no (unknown) (unknown) groomed (units (unkno wn) date) unknown) (unknown) (no (unknown) (unknown) hydrated since (units (unknown) date) you had big doses unknown) of medication today. You should start to feel (unknown) (no (unknown) (unknown) hydroxyzine HCl (units (unknown) date) 25 mg tablet 25 mg unknown) PO QID PRN #30 tab 07/08/21 (unknown) (no (unknown) (unknown) if she still has (units (unknown) date) symptoms after unknown) this. Patient is appropriate and amenable to (unknown) (no (unknown) (unknown) not held against (units (unknown) date) her will. unknown) Recommend close follow-up with primary care provider (unknown) (no (unknown) (unknown) not make her (units (u nknown) date) stomach sick. I unknown) hope you start feeling better soon. If use are (unknown) (no (unknown) (unknown) of a 5 year (units (un known) date) intrauterine unknown) device. Patient denies any fever, nausea or vomiting, (unknown) (no (unknown) (unknown) of today's note (units (unknown) date) if your PCP is in unknown) our system (unknown) (no (unknown) (unknown) os, patient has (units (unknown) date) significant unknown) tenderness with exam, dark brown vaginal discharge (unknown) (no (unknown) (unknown) pain, and 10 days (units (unknown) date) of doxycycline unknown) b.i.d.. Will follow up on cultures and vaginal (unknown) (no (unknown) (unknown) pelvic pain this (units (unknown) date) started last unknown) night, with vaginal bleeding and cramping which (unknown) (no (unknown) (unknown) persistent (units (unk nown) date) vomiting or other unknown) bothersome symptoms] (unknown) (no (unknown) (unknown) place because she (units (unknown) date) does not know why unknown) she would have pain otherwise. (unknown) (no (unknown) (unknown) prednisone 20 mg (units (unknown) date) tablet 40 mg PO unknown) DAILY #14 tab 07/08/21 (unknown) (no (unknown) (unknown) prednisone 20 mg (units (unknown) date) tablet 40 mg PO Q unknown) DAY 4 Days #0 tab 12/05/17 (unknown) (no (unknown) (unknown) previously grew (units (unknown) date) group B strep from unknown) her urine, UA today his pending. Wet prep (unknown) (no (unknown) (unknown) sexually active. (units (unknown) date) test was unknown) negative, pelvic exam completed with (unknown) (no (unknown) (unknown) specimens. (units (unkn own) date) Discussion with unknown) patient about safety and if she has any concerns for (unknown) (no (unknown) (unknown) still having (units (un known) date) symptoms after unknown) your antibiotics are complete, please follow-up with (unknown) (no (unknown) (unknown) tenderness in her (units (unknown) date) pelvic region, unknown) tenderness with pelvic exam with palpation of (unknown) (no (unknown) (unknown) tenderness with (units (unknown) date) exam, without unknown) guarding or rebound, patient complains of (unknown) (no (unknown) (unknown) that her vaginal (units (unknown) date) discharge is unknown) abnormal. She is concerned that her IUD is not in (unknown) (no (unknown) (unknown) this, she denies, (units (unknown) date) patient states unknown) that she is having consensual sex, and she is (unknown) (no (unknown) (unknown) to received full (units (unknown) date) treatment for STDs unknown) in the emergency department instead of (unknown) (no (unknown) (unknown) tobacco type: (units ( unknown) date) cigarettes and unknown) vaping (unknown) (no (unknown) (unknown) today shows (units (un known) date) moderate poly unknown) white blood cells without clue cells yeast or (unknown) (no (unknown) (unknown) topical ointment (units (unknown) date) unknown) (unknown) (no (unknown) (unknown) treat you for STDs (units (unknown) date) instead of wait unknown) for the cultures to grow out and have you get (unknown) (no (unknown) (unknown) treated in the (units (unknown) date) emergency unknown) department for bacterial vaginosis, chlamydia, (unknown) (no (unknown) (unknown) triamcinolone (units ( unknown) date) acetonide 0.5 % 1 unknown) applic TOPICAL TID #15 g 07/08/21 (unknown) (no (unknown) (unknown) up closely with (units (unknown) date) outpatient unknown) providers as instructed. Patient understands plan (unknown) (no (unknown) (unknown) vaginosis, 500 mg (units (unknown) date) of ceftriaxone, unknown) 1000 mg of p.o. azithromycin, Toradol for (unknown) (no (unknown) (unknown) waiting for (units (un known) date) culture results. unknown) Patient was given 2 g of Flagyl for bacterial (unknown) (no (unknown) (unknown) weakness (units (unkno wn) date) unknown) (unknown) (no (unknown) (unknown) wheezing, (units (unkn own) date) stridor, or rales. unknown) No retractions or tachypnea. (unknown) (no (unknown) (unknown) worse. Please (units (unknown) date) take doxycycline unknown) twice a day for the next 10 days. Today your Result panel 9 (unknown) (no (unknown) (unknown) (no value) (units (unk nown) date) unknown) (unknown) (no (unknown) (unknown) (no value) (units (unk nown) date) unknown) (unknown) (no (unknown) (unknown) *Please continue (units (unknown) date) to take your unknown) regular medications as directed. (unknown) (no (unknown) (unknown) Date of Service: (units (unknown) date) 12/18/21 unknown) (unknown) (no (unknown) (unknown) (no value) (units (unk nown) date) unknown) (unknown) (no (unknown) (unknown) <Electronically (units (unknown) date) signed by Shilpi unknown) Argelia SAUNDERS Crew> (unknown) (no (unknown) (unknown) <Electronically (units (unknown) date) signed by Bryon unknown) MD Viraj> (unknown) (no (unknown) (unknown) 12/18/21 1542 (units ( unknown) date) unknown) (unknown) (no (unknown) (unknown) 12/18/21 1901 (units ( unknown) date) unknown) (unknown) (no (unknown) (unknown) 1 applic topical (units (unknown) date) TID Qty: 15 6RF unknown) (unknown) (no (unknown) (unknown) 100 mg PO BID 10 (units (unknown) date) Days Qty: 20 0RF unknown) (unknown) (no (unknown) (unknown) 25 mg PO QID PRN (units (unknown) date) (Reason: anxiety) unknown) Qty: 30 0RF (unknown) (no (unknown) (unknown) 40 mg PO DAILY (units (unknown) date) Qty: 14 0RF unknown) (unknown) (no (unknown) (unknown) 40 mg PO Q DAY 4 (units (unknown) date) Days Qty: 0 0RF unknown) (unknown) (no (unknown) (unknown) 500 mg PO Q8H (units ( unknown) date) Qty: 30 0RF unknown) (unknown) (no (unknown) (unknown) 875 mg PO Q12H (units (unknown) date) Qty: 3 0RF unknown) (unknown) (no (unknown) (unknown) Allergies (units (unkn own) date) unknown) (unknown) (no (unknown) (unknown) Documented by: (units (unknown) date) KBROTEM unknown) (unknown) (no (unknown) (unknown) ED Orders (units (unkn own) date) unknown) (unknown) (no (unknown) (unknown) Emergency Report (units (unknown) date) unknown) (unknown) (no (unknown) (unknown) [facility] (units (unknown) date) [address] unknown) [place] [id number] (unknown) (no (unknown) (unknown) Last Admin: (units (un known) date) 12/18/21 13:37 unknown) Dose: 1,000 mg (unknown) (no (unknown) (unknown) Last Admin: (units (un known) date) 12/18/21 13:37 unknown) Dose: 2,000 mg (unknown) (no (unknown) (unknown) Last Admin: (units (un known) date) 12/18/21 13:38 unknown) Dose: 500 mg (unknown) (no (unknown) (unknown) Last Admin: (units (un known) date) 12/18/21 13:40 unknown) Dose: 15 mg (unknown) (no (unknown) (unknown) Last Admin: (units (un known) date) 12/18/21 13:40 unknown) Dose: 2.1 ml (unknown) (no (unknown) (unknown) Point of Care (units ( unknown) date) Testing unknown) (unknown) (no (unknown) (unknown) Previous Rx's (units ( unknown) date) unknown) (unknown) (no (unknown) (unknown) Rx Instructions: (units (unknown) date) unknown) (unknown) (no (unknown) (unknown) Stop: 12/18/21 (units (unknown) date) 13:13 unknown) (unknown) (no (unknown) (unknown) Stop: 12/18/21 (units (unknown) date) 13:17 unknown) (unknown) (no (unknown) (unknown) Vital Signs - 8 (units (unknown) date) hr unknown) (unknown) (no (unknown) (unknown) [ ] New (units (unkno wn) date) medication written unknown) as a paper prescription (unknown) (no (unknown) (unknown) [ ] No new (units (unk nown) date) medications given unknown) (unknown) (no (unknown) (unknown) [x ] New (units (unkno wn) date) medication unknown) prescriptions sent to your pharmacy: [ Donis] (unknown) (no (unknown) (unknown) to dry patches, (units (unknown) date) NOT including the unknown) face (unknown) (no (unknown) (unknown) (no value) (units (unk nown) date) unknown) (unknown) (no (unknown) (unknown) amoxicillin 500 (units (unknown) date) mg capsule unknown) (unknown) (no (unknown) (unknown) amoxicillin-pot (units (unknown) date) clavulanate unknown) [Augmentin] 875 MG/125 MG tablet (unknown) (no (unknown) (unknown) doxycycline (units (un known) date) hyclate 100 mg unknown) tablet (unknown) (no (unknown) (unknown) hydroxyzine HCl (units (unknown) date) 25 mg tablet unknown) (unknown) (no (unknown) (unknown) prednisone 20 MG (units (unknown) date) tablet unknown) (unknown) (no (unknown) (unknown) prednisone 20 mg (units (unknown) date) tablet unknown) (unknown) (no (unknown) (unknown) triamcinolone (units ( unknown) date) acetonide 0.5 % unknown) ointment (unknown) (no (unknown) (unknown) 12/18/21 (units (unkno wn) date) unknown) (unknown) (no (unknown) (unknown) Acute cervicitis (units (unknown) date) unknown) (unknown) (no (unknown) (unknown) Medication (units (unk nown) date) Instructions unknown) Recorded (unknown) (no (unknown) (unknown) <Shilpi Shook, (units (unknown) date) [facility] [place] - Last Filed: unknown) 12/18/21 15:42> (unknown) (no (unknown) (unknown) (Augmentin) (units (un known) date) unknown) (unknown) (no (unknown) (unknown) *If you do not (units (unknown) date) have a primary unknown) care provider please contact [phone] to (unknown) (no (unknown) (unknown) *Please follow up (units (unknown) date) with your primary unknown) care provider in 2-3 days, call for an (unknown) (no (unknown) (unknown) *Return to (units (unk nown) date) Emergency unknown) Department if you should have any new, worsening or (unknown) (no (unknown) (unknown) *What to do: (units (u nknown) date) unknown) (unknown) (no (unknown) (unknown) *You have been (units ( unknown) date) diagnosed with unknown) acute cervicitis. In this situation it is safe to (unknown) (no (unknown) (unknown) 12/18/21 13:24 (units (unknown) date) unknown) (unknown) (no (unknown) (unknown) 12:36 12/18/21 (units (unknown) date) unknown) (unknown) (no (unknown) (unknown) 14:19 (units (unkno wn) date) unknown) (unknown) (no (unknown) (unknown) Activity (units (unkno wn) date) Restrictions/Addit unknown) ional Instructions: (unknown) (no (unknown) (unknown) Age/Sex: 21 / F (units (unknown) date) unknown) (unknown) (no (unknown) (unknown) Allergy/AdvReac (units (unknown) date) Type Severity unknown) Reaction Status Date / Time (unknown) (no (unknown) (unknown) Azithromycin (units (u nknown) date) (Azithromycin 250 unknown) Mg Tablet) 1,000 mg PO NOW ONE (unknown) (no (unknown) (unknown) Blood Pressure (units (unknown) date) 118/77 12/18/21 unknown) 12:36 (unknown) (no (unknown) (unknown) Blood Pressure (units (unknown) date) 118/77 120/60 unknown) (unknown) (no (unknown) (unknown) Cardio: denies (units (unknown) date) chest pain, unknown) palpitations, edema (unknown) (no (unknown) (unknown) Cardiovascular: (units (unknown) date) regular rate and unknown) rhythm, no peripheral edema, warm extremities (unknown) (no (unknown) (unknown) Ceftriaxone (units (un known) date) Sodium unknown) (Ceftriaxone 1,000 Mg Vial) 500 mg IM NOW ONE (unknown) (no (unknown) (unknown) Chief complaint: (units (unknown) date) Urogenital-Female unknown) (unknown) (no (unknown) (unknown) Chlamydia/Gonoc/M (units (unknown) date) yco Genital Stat unknown) (unknown) (no (unknown) (unknown) Clinical (units (unkno wn) date) Impression: unknown) (unknown) (no (unknown) (unknown) Course (units (unkno wn) date) unknown) (unknown) (no (unknown) (unknown) : 2000 (units (unknown) date) Acct:[id number] unknown) (unknown) (no (unknown) (unknown) Departure (units (unkn own) date) unknown) (unknown) (no (unknown) (unknown) Discharge Plan (units (unknown) date) unknown) (unknown) (no (unknown) (unknown) Discontinued (units (u nknown) date) Medications unknown) (unknown) (no (unknown) (unknown) Dr. Anirudh johnson (units (unknown) date) primary care unknown) provider for another evaluation. (unknown) (no (unknown) (unknown) ER Physician: (units ( unknown) date) [place],Shilpi Stout unknown) PICTURE COPYIST (unknown) (no (unknown) (unknown) ER precautions for (units (unknown) date) any new or unknown) worsening symptoms. Patient understands to follow (unknown) (no (unknown) (unknown) Eczema (units (unkno wn) date) unknown) (unknown) (no (unknown) (unknown) Exam (units (unkno wn) date) unknown) (unknown) (no (unknown) (unknown) Exam Narrative: (units (unknown) date) unknown) (unknown) (no (unknown) (unknown) Eyes: denies (units (u nknown) date) visual changes, unknown) eye pain (unknown) (no (unknown) (unknown) Eyes: pupils (units (u nknown) date) equal round and unknown) reactive, EOMI, conjunctiva normal (unknown) (no (unknown) (unknown) GI: abdomen soft, (units (unknown) date) nontender to unknown) palpation, nondistended, no masses, no exquisite (unknown) (no (unknown) (unknown) GI: denies (units (unk nown) date) abdominal pain, unknown) nausea, vomiting, or diarrhea (unknown) (no (unknown) (unknown) : denies (units (unk nown) date) dysuria, unknown) hematuria, urinary retention, frequency or incontinence (unknown) (no (unknown) (unknown) 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 (units (u nknown) date) complains of unknown) pelvic pressure, abnormal vaginal discharge, spotting (unknown) (no (unknown) (unknown) 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: Pelvic exam (units (unknown) date) is completed, unknown) patient's cervix is erythematous, purulence (unknown) (no (unknown) (unknown) Keerthi Oleary MD (units (unknown) date) [Primary Care unknown) Provider] - (unknown) (no (unknown) (unknown) General (units (unkno wn) date) unknown) (unknown) (no (unknown) (unknown) General: (units (unkno wn) date) cooperative, unknown) comfortable, in no acute distress, well developed and well (unknown) (no (unknown) (unknown) General: denies (units (unknown) date) fever, chills, unknown) malaise, sweats, fatigue (unknown) (no (unknown) (unknown) HPI - Female (units (u nknown) date) Genitourinary unknown) (unknown) (no (unknown) (unknown) HPI Narrative: (units (unknown) date) unknown) (unknown) (no (unknown) (unknown) Head/Neck: denies (units (unknown) date) headache, neck unknown) pain, dizziness (unknown) (no (unknown) (unknown) Head: atraumatic, (units (unknown) date) symmetrical facial unknown) expressions (unknown) (no (unknown) (unknown) History of (units (unk nown) date) Present Illness unknown) (unknown) (no (unknown) (unknown) Independently (units ( unknown) date) reviewed vitals unknown) signs and nursing notes. (unknown) (no (unknown) (unknown) Initial Vital (units ( unknown) date) Signs unknown) (unknown) (no (unknown) (unknown) Initial Vital (units ( unknown) date) Signs: unknown) (unknown) (no (unknown) (unknown) Instructions: DI (units (unknown) date) for Acute unknown) Cervicitis (unknown) (no (unknown) (unknown) Ketorolac (units (unkn own) date) Tromethamine unknown) (Ketorolac 30 Mg/Ml Vial) 15 mg IM NOW ONE (unknown) (no (unknown) (unknown) Lab Data (units (unkno wn) date) unknown) (unknown) (no (unknown) (unknown) Labs: (units (unkno wn) date) unknown) (unknown) (no (unknown) (unknown) Lidocaine HCl (units ( unknown) date) (Lidocaine 1% (Pf) unknown) 5 Ml) 2.1 ml INJ NOW ONE (unknown) (no (unknown) (unknown) [id number] (units (unk nown) date) unknown) (unknown) (no (unknown) (unknown) MDM - Female (units (u nknown) date) Genitourinary unknown) (unknown) (no (unknown) (unknown) MDM Narrative (units ( unknown) date) unknown) (unknown) (no (unknown) (unknown) MSK: denies joint (units (unknown) date) pain, muscle unknown) weakness (unknown) (no (unknown) (unknown) MSK: moves all (units ( unknown) date) extremities, unknown) ambulatory w/steady gait, neurovascularly intact, no (unknown) (no (unknown) (unknown) Medical History (units (unknown) date) (Reviewed 09/27/21 unknown) @ 08:22 by Bryon Cali MD) (unknown) (no (unknown) (unknown) Medical decision (units (unknown) date) making narrative: unknown) (unknown) (no (unknown) (unknown) Metronidazole (units ( unknown) date) (Metronidazole 500 unknown) Mg Tablet) 2,000 mg PO NOW ONE (unknown) (no (unknown) (unknown) Mouth/Throat: (units ( unknown) date) uvula midline, unknown) moist mucus membranes (unknown) (no (unknown) (unknown) Narrative (units (unkn own) date) unknown) (unknown) (no (unknown) (unknown) Narrative: (units (unk nown) date) unknown) (unknown) (no (unknown) (unknown) Neck: supple, (units ( unknown) date) atraumatic, unknown) without lymphadenopathy. (unknown) (no (unknown) (unknown) Neuro: denies (units ( unknown) date) numbness, tingling unknown) (unknown) (no (unknown) (unknown) Neuro: normal (units ( unknown) date) speech and unknown) cognition, A+O x3, normal tone (unknown) (no (unknown) (unknown) New (units (unkno wn) date) unknown) (unknown) (no (unknown) (unknown) No Action (units (unkn own) date) unknown) (unknown) (no (unknown) (unknown) No Known Drug (units ( unknown) date) Allergies Allergy unknown) Verified 12/18/21 12:41 (unknown) (no (unknown) (unknown) Nose: nares (units (un known) date) patent, no unknown) rhinorrhea (unknown) (no (unknown) (unknown) Ordered: (units (unkno wn) date) unknown) (unknown) (no (unknown) (unknown) Orders (units (unkno wn) date) unknown) (unknown) (no (unknown) (unknown) Patient (units (unkno wn) date) Disposition: Home unknown) (unknown) (no (unknown) (unknown) Patient History (units (unknown) date) unknown) (unknown) (no (unknown) (unknown) Patient has been (units (unknown) date) informed of unknown) results. Patient has been given strict return to (unknown) (no (unknown) (unknown) Patient: (units (unkno wn) date) Amanda Davis unknown) MR#: (unknown) (no (unknown) (unknown) Test (units (unknown) date) Results unknown) Negative (unknown) (no (unknown) (unknown) Prescriptions: (units (unknown) date) unknown) (unknown) (no (unknown) (unknown) Psych: mental (units ( unknown) date) status is grossly unknown) normal, congruent mood, normal affect, pleasant (unknown) (no (unknown) (unknown) Pulse Oximetry (units (unknown) date) 97 12/18/21 unknown) 12:36 (unknown) (no (unknown) (unknown) Pulse Oximetry 97 (units (unknown) date) 98 unknown) (unknown) (no (unknown) (unknown) Pulse Rate 101 H (units (unknown) date) 12/18/21 12:36 unknown) (unknown) (no (unknown) (unknown) Pulse Rate 101 H (units (unknown) date) 99 H unknown) (unknown) (no (unknown) (unknown) Referrals: (units (unk nown) date) unknown) (unknown) (no (unknown) (unknown) Related Data (units (u nknown) date) unknown) (unknown) (no (unknown) (unknown) Respiratory Rate (units (unknown) date) 17 12/18/21 unknown) 12:36 (unknown) (no (unknown) (unknown) Respiratory Rate (units (unknown) date) 17 18 unknown) (unknown) (no (unknown) (unknown) Respiratory: (units (u nknown) date) denies dyspnea, unknown) cough, orthopnea (unknown) (no (unknown) (unknown) Respiratory: (units (u nknown) date) normal effort, unknown) able to speak in complete sentences, no audible (unknown) (no (unknown) (unknown) Review of Systems (units (unknown) date) unknown) (unknown) (no (unknown) (unknown) Right carpal (units (u nknown) date) tunnel syndrome unknown) (unknown) (no (unknown) (unknown) Seasonal (units (unkno wn) date) allergies unknown) (unknown) (no (unknown) (unknown) Signed By: (units (unk nown) date) unknown) (unknown) (no (unknown) (unknown) Skin: brisk (units (un known) date) capillary refill, unknown) no rash, no erythema (unknown) (no (unknown) (unknown) Skin: denies (units (u nknown) date) rash, itching, unknown) skin lesions or other (unknown) (no (unknown) (unknown) Stated complaint: (units (unknown) date) PELVIC PAIN FEELS unknown) LIKE IUD IS OUT OF PLACE (unknown) (no (unknown) (unknown) Substance Use (units ( unknown) date) Type: does not use unknown) (unknown) (no (unknown) (unknown) Temperature 97.5 (units (unknown) date) F L 12/18/21 unknown) 12:36 (unknown) (no (unknown) (unknown) Temperature 97.5 (units (unknown) date) F L unknown) (unknown) (no (unknown) (unknown) This is a (units (unkn own) date) 21-year-old female unknown) who presents to the emergency department (unknown) (no (unknown) (unknown) This is a (units (unkn own) date) 21-year-old female unknown) with history of cervicitis, bacterial vaginosis, (unknown) (no (unknown) (unknown) Time Seen by (units (u nknown) date) Provider: 12/18/21 unknown) 12:39 (unknown) (no (unknown) (unknown) Trichomonas. (units (un known) date) Independence decision unknown) making between patient and myself and patient opts (unknown) (no (unknown) (unknown) Vital Signs (units (un known) date) unknown) (unknown) (no (unknown) (unknown) Vital signs: (units (u nknown) date) unknown) (unknown) (no (unknown) (unknown) Wet Prep Tric BV (units (unknown) date) Brooke Stat unknown) (unknown) (no (unknown) (unknown) acute cervicitis, (units (unknown) date) Trichomonas, unknown) bacterial vaginosis and states that she is (unknown) (no (unknown) (unknown) adnexa (units (unkno wn) date) unknown) (unknown) (no (unknown) (unknown) alcohol intake (units (unknown) date) frequency: other unknown) (unknown) (no (unknown) (unknown) also started last (units (unknown) date) night. Patient unknown) states that she has an IUD, she is on your 3 (unknown) (no (unknown) (unknown) amoxicillin 500 (units (unknown) date) mg capsule 500 mg unknown) PO Q8H #30 cap 01/01/19 (unknown) (no (unknown) (unknown) amoxicillin 875 (units (unknown) date) mg-potassium 875 unknown) mg PO Q12H #3 tab 12/05/17 (unknown) (no (unknown) (unknown) and agrees to (units (u nknown) date) discharge home. unknown) All questions and concerns answered at this time. (unknown) (no (unknown) (unknown) and cooperative (units (unknown) date) unknown) (unknown) (no (unknown) (unknown) and cramping (units (u nknown) date) unknown) (unknown) (no (unknown) (unknown) and group B strep (units (unknown) date) UTI who presents unknown) to the emergency department complaining of (unknown) (no (unknown) (unknown) and purulent (units (u nknown) date) discharge are both unknown) present. (unknown) (no (unknown) (unknown) any dysuria, (units (un known) date) urinary frequency unknown) or urgency, denies any vaginal pleuritis. States (unknown) (no (unknown) (unknown) appointment. Let (units (unknown) date) them know you were unknown) seen in the Emergency Department and that we (unknown) (no (unknown) (unknown) asked that you be (units (unknown) date) seen for unknown) follow-up. We will electronically transmit a record (unknown) (no (unknown) (unknown) better this (units (un known) date) evening or unknown) tomorrow. Please eat food with your medications to the (unknown) (no (unknown) (unknown) clavulanate 125 (units (unknown) date) mg tablet unknown) (unknown) (no (unknown) (unknown) complaining of (units ( unknown) date) pelvic pain and unknown) abnormal vaginal discharge. She has a history of (unknown) (no (unknown) (unknown) concerning (units (unk nown) date) symptoms, such as unknown) [fever greater than 101F, chills, worsening pain, (unknown) (no (unknown) (unknown) cultured, wet (units ( unknown) date) mount completed unknown) and genital cultures are pending patient (unknown) (no (unknown) (unknown) denies any (units (unk nown) date) changes to her unknown) stool. Patient denies any back pain. Patient denies (unknown) (no (unknown) (unknown) discharge coming (units (unknown) date) from os, IUD unknown) strings appear intact and coming from the cervical (unknown) (no (unknown) (unknown) discharge home. (units (unknown) date) Vital signs are unknown) stable on repeat examination is unremarkable. (unknown) (no (unknown) (unknown) doxycycline (units (un known) date) hyclate 100 mg unknown) tablet 100 mg PO BID 10 Days #20 tab 12/18/21 (unknown) (no (unknown) (unknown) erythematous (units (u nknown) date) cervix, purulence unknown) discharge coming from cervical os, this was (unknown) (no (unknown) (unknown) establish care (units (unknown) date) with one of the unknown) [facility] primary care providers. (unknown) (no (unknown) (unknown) gonorrhea. We (units (unknown) date) will call you with unknown) any of those things grow out. Please stay (unknown) (no (unknown) (unknown) groomed (units (unkno wn) date) unknown) (unknown) (no (unknown) (unknown) hydrated since (units (unknown) date) you had big doses unknown) of medication today. You should start to feel (unknown) (no (unknown) (unknown) hydroxyzine HCl (units (unknown) date) 25 mg tablet 25 mg unknown) PO QID PRN #30 tab 07/08/21 (unknown) (no (unknown) (unknown) if she still has (units (unknown) date) symptoms after unknown) this. Patient is appropriate and amenable to (unknown) (no (unknown) (unknown) not held against (units (unknown) date) her will. unknown) Recommend close follow-up with primary care provider (unknown) (no (unknown) (unknown) not make her (units (u nknown) date) stomach sick. I unknown) hope you start feeling better soon. If use are (unknown) (no (unknown) (unknown) of a 5 year (units (un known) date) intrauterine unknown) device. Patient denies any fever, nausea or vomiting, (unknown) (no (unknown) (unknown) of today's note (units (unknown) date) if your PCP is in unknown) our system (unknown) (no (unknown) (unknown) os, patient has (units (unknown) date) significant unknown) tenderness with exam, dark brown vaginal discharge (unknown) (no (unknown) (unknown) pain, and 10 days (units (unknown) date) of doxycycline unknown) b.i.d.. Will follow up on cultures and vaginal (unknown) (no (unknown) (unknown) pelvic pain this (units (unknown) date) started last unknown) night, with vaginal bleeding and cramping which (unknown) (no (unknown) (unknown) persistent (units (unk nown) date) vomiting or other unknown) bothersome symptoms] (unknown) (no (unknown) (unknown) place because she (units (unknown) date) does not know why unknown) she would have pain otherwise. (unknown) (no (unknown) (unknown) prednisone 20 mg (units (unknown) date) tablet 40 mg PO unknown) DAILY #14 tab 07/08/21 (unknown) (no (unknown) (unknown) prednisone 20 mg (units (unknown) date) tablet 40 mg PO Q unknown) DAY 4 Days #0 tab 12/05/17 (unknown) (no (unknown) (unknown) previously grew (units (unknown) date) group B strep from unknown) her urine, UA today his pending. Wet prep (unknown) (no (unknown) (unknown) sexually active. (units (unknown) date) test was unknown) negative, pelvic exam completed with (unknown) (no (unknown) (unknown) specimens. (units (unkn own) date) Discussion with unknown) patient about safety and if she has any concerns for (unknown) (no (unknown) (unknown) still having (units (un known) date) symptoms after unknown) your antibiotics are complete, please follow-up with (unknown) (no (unknown) (unknown) tenderness in her (units (unknown) date) pelvic region, unknown) tenderness with pelvic exam with palpation of (unknown) (no (unknown) (unknown) tenderness with (units (unknown) date) exam, without unknown) guarding or rebound, patient complains of (unknown) (no (unknown) (unknown) that her vaginal (units (unknown) date) discharge is unknown) abnormal. She is concerned that her IUD is not in (unknown) (no (unknown) (unknown) this, she denies, (units (unknown) date) patient states unknown) that she is having consensual sex, and she is (unknown) (no (unknown) (unknown) to received full (units (unknown) date) treatment for STDs unknown) in the emergency department instead of (unknown) (no (unknown) (unknown) tobacco type: (units ( unknown) date) cigarettes and unknown) vaping (unknown) (no (unknown) (unknown) today shows (units (un known) date) moderate poly unknown) white blood cells without clue cells yeast or (unknown) (no (unknown) (unknown) topical ointment (units (unknown) date) unknown) (unknown) (no (unknown) (unknown) treat you for STDs (units (unknown) date) instead of wait unknown) for the cultures to grow out and have you get (unknown) (no (unknown) (unknown) treated in the (units (unknown) date) emergency unknown) department for bacterial vaginosis, chlamydia, (unknown) (no (unknown) (unknown) triamcinolone (units ( unknown) date) acetonide 0.5 % 1 unknown) applic TOPICAL TID #15 g 07/08/21 (unknown) (no (unknown) (unknown) up closely with (units (unknown) date) outpatient unknown) providers as instructed. Patient understands plan (unknown) (no (unknown) (unknown) vaginosis, 500 mg (units (unknown) date) of ceftriaxone, unknown) 1000 mg of p.o. azithromycin, Toradol for (unknown) (no (unknown) (unknown) waiting for (units (un known) date) culture results. unknown) Patient was given 2 g of Flagyl for bacterial (unknown) (no (unknown) (unknown) weakness (units (unkno wn) date) unknown) (unknown) (no (unknown) (unknown) wheezing, (units (unkn own) date) stridor, or rales. unknown) No retractions or tachypnea. (unknown) (no (unknown) (unknown) worse. Please (units (unknown) date) take doxycycline unknown) twice a day for the next 10 days. Today your Result panel 10 (unknown) (no date) (unknown) (unknown) Negative (units (unkn own) unknown) (unknown) (no date) (unknown) (unknown) Negative (units (unkn own) unknown) (unknown) (no date) (unknown) (unknown) Positive (units (unkn own) unknown) Result panel 11 (unknown) (no (unknown) (unknown) (no value) (units (unk nown) date) unknown) (unknown) (no (unknown) (unknown) (no value) (units (unk nown) date) unknown) (unknown) (no (unknown) (unknown) *Please continue (units (unknown) date) to take your unknown) regular medications as directed. (unknown) (no (unknown) (unknown) Date of Service: (units (unknown) date) 12/18/21 unknown) (unknown) (no (unknown) (unknown) (no value) (units (unk nown) date) unknown) (unknown) (no (unknown) (unknown) <Electronically (units (unknown) date) signed by Shilpi MELGARP Crew> (unknown) (no (unknown) (unknown) <Electronically (units (unknown) date) signed by Bryon unknown) MD Viraj> (unknown) (no (unknown) (unknown) ADDENDUM (units (u nknown) date) unknown) (unknown) (no (unknown) (unknown) 12/18/21 1542 (units ( unknown) date) unknown) (unknown) (no (unknown) (unknown) 12/18/21 1901 (units ( unknown) date) unknown) (unknown) (no (unknown) (unknown) 12/20/21 2113 (units ( unknown) date) unknown) (unknown) (no (unknown) (unknown) 1 applic topical (units (unknown) date) TID Qty: 15 6RF unknown) (unknown) (no (unknown) (unknown) 100 mg PO BID 10 (units (unknown) date) Days Qty: 20 0RF unknown) (unknown) (no (unknown) (unknown) 25 mg PO QID PRN (units (unknown) date) (Reason: anxiety) unknown) Qty: 30 0RF (unknown) (no (unknown) (unknown) 40 mg PO DAILY (units (unknown) date) Qty: 14 0RF unknown) (unknown) (no (unknown) (unknown) 40 mg PO Q DAY 4 (units (unknown) date) Days Qty: 0 0RF unknown) (unknown) (no (unknown) (unknown) 500 mg PO Q8H (units ( unknown) date) Qty: 30 0RF unknown) (unknown) (no (unknown) (unknown) 875 mg PO Q12H (units (unknown) date) Qty: 3 0RF unknown) (unknown) (no (unknown) (unknown) Allergies (units (unkn own) date) unknown) (unknown) (no (unknown) (unknown) Documented by: (units (unknown) date) KBROTEM unknown) (unknown) (no (unknown) (unknown) ED Orders (units (unkn own) date) unknown) (unknown) (no (unknown) (unknown) Emergency Report (units (unknown) date) unknown) (unknown) (no (unknown) (unknown) [facility] (units (unknown) date) [address] unknown) [place] [address] (unknown) (no (unknown) (unknown) Last Admin: (units (un known) date) 12/18/21 13:37 unknown) Dose: 1,000 mg (unknown) (no (unknown) (unknown) Last Admin: (units (un known) date) 12/18/21 13:37 unknown) Dose: 2,000 mg (unknown) (no (unknown) (unknown) Last Admin: (units (un known) date) 12/18/21 13:38 unknown) Dose: 500 mg (unknown) (no (unknown) (unknown) Last Admin: (units (un known) date) 12/18/21 13:40 unknown) Dose: 15 mg (unknown) (no (unknown) (unknown) Last Admin: (units (un known) date) 12/18/21 13:40 unknown) Dose: 2.1 ml (unknown) (no (unknown) (unknown) Point of Care (units ( unknown) date) Testing unknown) (unknown) (no (unknown) (unknown) Previous Rx's (units ( unknown) date) unknown) (unknown) (no (unknown) (unknown) Rx Instructions: (units (unknown) date) unknown) (unknown) (no (unknown) (unknown) Stop: 12/18/21 (units (unknown) date) 13:13 unknown) (unknown) (no (unknown) (unknown) Stop: 12/18/21 (units (unknown) date) 13:17 unknown) (unknown) (no (unknown) (unknown) Vital Signs - 8 (units (unknown) date) hr unknown) (unknown) (no (unknown) (unknown) [ ] New (units (unkno wn) date) medication written unknown) as a paper prescription (unknown) (no (unknown) (unknown) [ ] No new (units (unk nown) date) medications given unknown) (unknown) (no (unknown) (unknown) [x ] New (units (unkno wn) date) medication unknown) prescriptions sent to your pharmacy: [ Donis] (unknown) (no (unknown) (unknown) to dry patches, (units (unknown) date) NOT including the unknown) face (unknown) (no (unknown) (unknown) (no value) (units (unk nown) date) unknown) (unknown) (no (unknown) (unknown) amoxicillin 500 (units (unknown) date) mg capsule unknown) (unknown) (no (unknown) (unknown) amoxicillin-pot (units (unknown) date) clavulanate unknown) [Augmentin] 875 MG/125 MG tablet (unknown) (no (unknown) (unknown) doxycycline (units (un known) date) hyclate 100 mg unknown) tablet (unknown) (no (unknown) (unknown) hydroxyzine HCl (units (unknown) date) 25 mg tablet unknown) (unknown) (no (unknown) (unknown) prednisone 20 MG (units (unknown) date) tablet unknown) (unknown) (no (unknown) (unknown) prednisone 20 mg (units (unknown) date) tablet unknown) (unknown) (no (unknown) (unknown) triamcinolone (units ( unknown) date) acetonide 0.5 % unknown) ointment (unknown) (no (unknown) (unknown) 12/18/21 (units (unkno wn) date) unknown) (unknown) (no (unknown) (unknown) Acute cervicitis (units (unknown) date) unknown) (unknown) (no (unknown) (unknown) Medication (units (unk nown) date) Instructions unknown) Recorded (unknown) (no (unknown) (unknown) <Shilpi Shook, (units (unknown) date) [facility] [place] - Last Filed: unknown) 12/18/21 15:42> (unknown) (no (unknown) (unknown) (Augmentin) (units (un known) date) unknown) (unknown) (no (unknown) (unknown) *If you do not (units (unknown) date) have a primary unknown) care provider please contact [phone] to (unknown) (no (unknown) (unknown) *Please follow up (units (unknown) date) with your primary unknown) care provider in 2-3 days, call for an (unknown) (no (unknown) (unknown) *Return to (units (unk nown) date) Emergency unknown) Department if you should have any new, worsening or (unknown) (no (unknown) (unknown) *What to do: (units (u nknown) date) unknown) (unknown) (no (unknown) (unknown) *You have been (units ( unknown) date) diagnosed with unknown) acute cervicitis. In this situation it is safe to (unknown) (no (unknown) (unknown) 12/18/21 13:24 (units (unknown) date) unknown) (unknown) (no (unknown) (unknown) 12:36 12/18/21 (units (unknown) date) unknown) (unknown) (no (unknown) (unknown) 14:19 (units (unkno wn) date) unknown) (unknown) (no (unknown) (unknown) Activity (units (unkno wn) date) Restrictions/Addit unknown) ional Instructions: (unknown) (no (unknown) (unknown) Addendum (units (unkno wn) date) Documented By: unknown) Maggie ReyesOHans (unknown) (no (unknown) (unknown) Addendum Signed (units (unknown) date) By: unknown) <Electronically signed by Maggie Reyes (unknown) (no (unknown) (unknown) Age/Sex: 21 / F (units (unknown) date) unknown) (unknown) (no (unknown) (unknown) Allergy/AdvReac (units (unknown) date) Type Severity unknown) Reaction Status Date / Time (unknown) (no (unknown) (unknown) Azithromycin (units (u nknown) date) (Azithromycin 250 unknown) Mg Tablet) 1,000 mg PO NOW ONE (unknown) (no (unknown) (unknown) Blood Pressure (units (unknown) date) 118/77 12/18/21 unknown) 12:36 (unknown) (no (unknown) (unknown) Blood Pressure (units (unknown) date) 11877 120/60 unknown) (unknown) (no (unknown) (unknown) Cardio: denies (units (unknown) date) chest pain, unknown) palpitations, edema (unknown) (no (unknown) (unknown) Cardiovascular: (units (unknown) date) regular rate and unknown) rhythm, no peripheral edema, warm extremities (unknown) (no (unknown) (unknown) Ceftriaxone (units (un known) date) Sodium unknown) (Ceftriaxone 1,000 Mg Vial) 500 mg IM NOW ONE (unknown) (no (unknown) (unknown) Chief complaint: (units (unknown) date) Urogenital-Female unknown) (unknown) (no (unknown) (unknown) Chlamydia/Gonoc/M (units (unknown) date) yco Genital Stat unknown) (unknown) (no (unknown) (unknown) Clinical (units (unkno wn) date) Impression: unknown) (unknown) (no (unknown) (unknown) Course (units (unkno wn) date) unknown) (unknown) (no (unknown) (unknown) : 2000 (units (unknown) date) Acct:[id number] unknown) (unknown) (no (unknown) (unknown) Departure (units (unkn own) date) unknown) (unknown) (no (unknown) (unknown) Discharge Plan (units (unknown) date) unknown) (unknown) (no (unknown) (unknown) Discontinued (units (u nknown) date) Medications unknown) (unknown) (no (unknown) (unknown) Dr. Anirudh johnson (units (unknown) date) primary care unknown) provider for another evaluation. (unknown) (no (unknown) (unknown) ER Physician: (units ( unknown) date) Shilpi Shook unknown) PICTURE COPYIST (unknown) (no (unknown) (unknown) ER precautions for (units (unknown) date) any new or unknown) worsening symptoms. Patient understands to follow (unknown) (no (unknown) (unknown) Eczema (units (unkno wn) date) unknown) (unknown) (no (unknown) (unknown) Exam (units (unkno wn) date) unknown) (unknown) (no (unknown) (unknown) Exam Narrative: (units (unknown) date) unknown) (unknown) (no (unknown) (unknown) Eyes: denies (units (u nknown) date) visual changes, unknown) eye pain (unknown) (no (unknown) (unknown) Eyes: pupils (units (u nknown) date) equal round and unknown) reactive, EOMI, conjunctiva normal (unknown) (no (unknown) (unknown) GI: abdomen soft, (units (unknown) date) nontender to unknown) palpation, nondistended, no masses, no exquisite (unknown) (no (unknown) (unknown) GI: denies (units (unk nown) date) abdominal pain, unknown) nausea, vomiting, or diarrhea (unknown) (no (unknown) (unknown) : denies (units (unk nown) date) dysuria, unknown) hematuria, urinary retention, frequency or incontinence (unknown) (no (unknown) (unknown) 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 (units (u nknown) date) complains of unknown) pelvic pressure, abnormal vaginal discharge, spotting (unknown) (no (unknown) (unknown) 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: Pelvic exam (units (unknown) date) is completed, unknown) patient's cervix is erythematous, purulence (unknown) (no (unknown) (unknown) Keerthi Oleary MD (units (unknown) date) [Primary Care unknown) Provider] - (unknown) (no (unknown) (unknown) General (units (unkno wn) date) unknown) (unknown) (no (unknown) (unknown) General: (units (unkno wn) date) cooperative, unknown) comfortable, in no acute distress, well developed and well (unknown) (no (unknown) (unknown) General: denies (units (unknown) date) fever, chills, unknown) malaise, sweats, fatigue (unknown) (no (unknown) (unknown) HPI - Female (units (u nknown) date) Genitourinary unknown) (unknown) (no (unknown) (unknown) HPI Narrative: (units (unknown) date) unknown) (unknown) (no (unknown) (unknown) Head/Neck: denies (units (unknown) date) headache, neck unknown) pain, dizziness (unknown) (no (unknown) (unknown) Head: atraumatic, (units (unknown) date) symmetrical facial unknown) expressions (unknown) (no (unknown) (unknown) History of (units (unk nown) date) Present Illness unknown) (unknown) (no (unknown) (unknown) Independently (units ( unknown) date) reviewed vitals unknown) signs and nursing notes. (unknown) (no (unknown) (unknown) Initial Vital (units ( unknown) date) Signs unknown) (unknown) (no (unknown) (unknown) Initial Vital (units ( unknown) date) Signs: unknown) (unknown) (no (unknown) (unknown) Instructions: DI (units (unknown) date) for Acute unknown) Cervicitis (unknown) (no (unknown) (unknown) Ketorolac (units (unkn own) date) Tromethamine unknown) (Ketorolac 30 Mg/Ml Vial) 15 mg IM NOW ONE (unknown) (no (unknown) (unknown) Lab Data (units (unkno wn) date) unknown) (unknown) (no (unknown) (unknown) Labs: (units (unkno wn) date) unknown) (unknown) (no (unknown) (unknown) Lidocaine HCl (units ( unknown) date) (Lidocaine 1% (Pf) unknown) 5 Ml) 2.1 ml INJ NOW ONE (unknown) (no (unknown) (unknown) [id number] (units (unk nown) date) unknown) (unknown) (no (unknown) (unknown) MDM - Female (units (u nknown) date) Genitourinary unknown) (unknown) (no (unknown) (unknown) MDM Narrative (units ( unknown) date) unknown) (unknown) (no (unknown) (unknown) MSK: denies joint (units (unknown) date) pain, muscle unknown) weakness (unknown) (no (unknown) (unknown) MSK: moves all (units ( unknown) date) extremities, unknown) ambulatory w/steady gait, neurovascularly intact, no (unknown) (no (unknown) (unknown) Medical History (units (unknown) date) (Reviewed 09/27/21 unknown) @ 08:22 by Bryon Cali MD) (unknown) (no (unknown) (unknown) Medical decision (units (unknown) date) making narrative: unknown) (unknown) (no (unknown) (unknown) Metronidazole (units ( unknown) date) (Metronidazole 500 unknown) Mg Tablet) 2,000 mg PO NOW ONE (unknown) (no (unknown) (unknown) Mouth/Throat: (units ( unknown) date) uvula midline, unknown) moist mucus membranes (unknown) (no (unknown) (unknown) Narrative (units (unkn own) date) unknown) (unknown) (no (unknown) (unknown) Narrative: (units (unk nown) date) unknown) (unknown) (no (unknown) (unknown) Neck: supple, (units ( unknown) date) atraumatic, unknown) without lymphadenopathy. (unknown) (no (unknown) (unknown) Neuro: denies (units ( unknown) date) numbness, tingling unknown) (unknown) (no (unknown) (unknown) Neuro: normal (units ( unknown) date) speech and unknown) cognition, A+O x3, normal tone (unknown) (no (unknown) (unknown) New (units (unkno wn) date) unknown) (unknown) (no (unknown) (unknown) No Action (units (unkn own) date) unknown) (unknown) (no (unknown) (unknown) No Known Drug (units ( unknown) date) Allergies Allergy unknown) Verified 12/18/21 12:41 (unknown) (no (unknown) (unknown) Nose: nares (units (un known) date) patent, no unknown) rhinorrhea (unknown) (no (unknown) (unknown) O.> 12/20/21 (units (unknown) date) 2112 unknown) (unknown) (no (unknown) (unknown) Ordered: (units (unkno wn) date) unknown) (unknown) (no (unknown) (unknown) Orders (units (unkno wn) date) unknown) (unknown) (no (unknown) (unknown) Patient (units (unkno wn) date) Disposition: Home unknown) (unknown) (no (unknown) (unknown) Patient History (units (unknown) date) unknown) (unknown) (no (unknown) (unknown) Patient has been (units (unknown) date) informed of unknown) results. Patient has been given strict return to (unknown) (no (unknown) (unknown) Patient treated (units (unknown) date) appropriately with unknown) Rocephin 500mg. (unknown) (no (unknown) (unknown) Patient: (units (unkno wn) date) Amanda Davis Earnest unknown) MR#: (unknown) (no (unknown) (unknown) Test (units (unknown) date) Results unknown) Negative (unknown) (no (unknown) (unknown) Prescriptions: (units (unknown) date) unknown) (unknown) (no (unknown) (unknown) Psych: mental (units ( unknown) date) status is grossly unknown) normal, congruent mood, normal affect, pleasant (unknown) (no (unknown) (unknown) Pulse Oximetry (units (unknown) date) 97 12/18/21 unknown) 12:36 (unknown) (no (unknown) (unknown) Pulse Oximetry 97 (units (unknown) date) 98 unknown) (unknown) (no (unknown) (unknown) Pulse Rate 101 H (units (unknown) date) 12/18/21 12:36 unknown) (unknown) (no (unknown) (unknown) Pulse Rate 101 H (units (unknown) date) 99 H unknown) (unknown) (no (unknown) (unknown) Referrals: (units (unk nown) date) unknown) (unknown) (no (unknown) (unknown) Related Data (units (u nknown) date) unknown) (unknown) (no (unknown) (unknown) Respiratory Rate (units (unknown) date) 17 12/18/21 unknown) 12:36 (unknown) (no (unknown) (unknown) Respiratory Rate (units (unknown) date) 17 18 unknown) (unknown) (no (unknown) (unknown) Respiratory: (units (u nknown) date) denies dyspnea, unknown) cough, orthopnea (unknown) (no (unknown) (unknown) Respiratory: (units (u nknown) date) normal effort, unknown) able to speak in complete sentences, no audible (unknown) (no (unknown) (unknown) Review of Systems (units (unknown) date) unknown) (unknown) (no (unknown) (unknown) Right carpal (units (u nknown) date) tunnel syndrome unknown) (unknown) (no (unknown) (unknown) Seasonal (units (unkno wn) date) allergies unknown) (unknown) (no (unknown) (unknown) Signed By: (units (unk nown) date) unknown) (unknown) (no (unknown) (unknown) Skin: brisk (units (un known) date) capillary refill, unknown) no rash, no erythema (unknown) (no (unknown) (unknown) Skin: denies (units (u nknown) date) rash, itching, unknown) skin lesions or other (unknown) (no (unknown) (unknown) Stated complaint: (units (unknown) date) PELVIC PAIN FEELS unknown) LIKE IUD IS OUT OF PLACE (unknown) (no (unknown) (unknown) Substance Use (units ( unknown) date) Type: does not use unknown) (unknown) (no (unknown) (unknown) Temperature 97.5 (units (unknown) date) F L 12/18/21 unknown) 12:36 (unknown) (no (unknown) (unknown) Temperature 97.5 (units (unknown) date) F L unknown) (unknown) (no (unknown) (unknown) This is a (units (unkn own) date) 21-year-old female unknown) who presents to the emergency department (unknown) (no (unknown) (unknown) This is a (units (unkn own) date) 21-year-old female unknown) with history of cervicitis, bacterial vaginosis, (unknown) (no (unknown) (unknown) Time Seen by (units (u nknown) date) Provider: 12/18/21 unknown) 12:39 (unknown) (no (unknown) (unknown) Trichomonas. (units (un known) date) Independence decision unknown) making between patient and myself and patient opts (unknown) (no (unknown) (unknown) Vital Signs (units (un known) date) unknown) (unknown) (no (unknown) (unknown) Vital signs: (units (u nknown) date) unknown) (unknown) (no (unknown) (unknown) Wet Prep Tric BV (units (unknown) date) Brooke Stat unknown) (unknown) (no (unknown) (unknown) acute cervicitis, (units (unknown) date) Trichomonas, unknown) bacterial vaginosis and states that she is (unknown) (no (unknown) (unknown) adnexa (units (unkno wn) date) unknown) (unknown) (no (unknown) (unknown) alcohol intake (units (unknown) date) frequency: other unknown) (unknown) (no (unknown) (unknown) also started last (units (unknown) date) night. Patient unknown) states that she has an IUD, she is on your 3 (unknown) (no (unknown) (unknown) amoxicillin 500 (units (unknown) date) mg capsule 500 mg unknown) PO Q8H #30 cap 01/01/19 (unknown) (no (unknown) (unknown) amoxicillin 875 (units (unknown) date) mg-potassium 875 unknown) mg PO Q12H #3 tab 12/05/17 (unknown) (no (unknown) (unknown) and agrees to (units (u nknown) date) discharge home. unknown) All questions and concerns answered at this time. (unknown) (no (unknown) (unknown) and cooperative (units (unknown) date) unknown) (unknown) (no (unknown) (unknown) and cramping (units (u nknown) date) unknown) (unknown) (no (unknown) (unknown) and group B strep (units (unknown) date) UTI who presents unknown) to the emergency department complaining of (unknown) (no (unknown) (unknown) and purulent (units (u nknown) date) discharge are both unknown) present. (unknown) (no (unknown) (unknown) any dysuria, (units (un known) date) urinary frequency unknown) or urgency, denies any vaginal pleuritis. States (unknown) (no (unknown) (unknown) appointment. Let (units (unknown) date) them know you were unknown) seen in the Emergency Department and that we (unknown) (no (unknown) (unknown) asked that you be (units (unknown) date) seen for unknown) follow-up. We will electronically transmit a record (unknown) (no (unknown) (unknown) better this (units (un known) date) evening or unknown) tomorrow. Please eat food with your medications to the (unknown) (no (unknown) (unknown) clavulanate 125 (units (unknown) date) mg tablet unknown) (unknown) (no (unknown) (unknown) complaining of (units ( unknown) date) pelvic pain and unknown) abnormal vaginal discharge. She has a history of (unknown) (no (unknown) (unknown) concerning (units (unk nown) date) symptoms, such as unknown) [fever greater than 101F, chills, worsening pain, (unknown) (no (unknown) (unknown) cultured, wet (units ( unknown) date) mount completed unknown) and genital cultures are pending patient (unknown) (no (unknown) (unknown) denies any (units (unk nown) date) changes to her unknown) stool. Patient denies any back pain. Patient denies (unknown) (no (unknown) (unknown) discharge coming (units (unknown) date) from os, IUD unknown) strings appear intact and coming from the cervical (unknown) (no (unknown) (unknown) discharge home. (units (unknown) date) Vital signs are unknown) stable on repeat examination is unremarkable. (unknown) (no (unknown) (unknown) doxycycline (units (un known) date) hyclate 100 mg unknown) tablet 100 mg PO BID 10 Days #20 tab 12/18/21 (unknown) (no (unknown) (unknown) erythematous (units (u nknown) date) cervix, purulence unknown) discharge coming from cervical os, this was (unknown) (no (unknown) (unknown) establish care (units (unknown) date) with one of the unknown) [facility] primary care providers. (unknown) (no (unknown) (unknown) gonorrhea. We (units (unknown) date) will call you with unknown) any of those things grow out. Please stay (unknown) (no (unknown) (unknown) groomed (units (unkno wn) date) unknown) (unknown) (no (unknown) (unknown) hydrated since (units (unknown) date) you had big doses unknown) of medication today. You should start to feel (unknown) (no (unknown) (unknown) hydroxyzine HCl (units (unknown) date) 25 mg tablet 25 mg unknown) PO QID PRN #30 tab 07/08/21 (unknown) (no (unknown) (unknown) if she still has (units (unknown) date) symptoms after unknown) this. Patient is appropriate and amenable to (unknown) (no (unknown) (unknown) not held against (units (unknown) date) her will. unknown) Recommend close follow-up with primary care provider (unknown) (no (unknown) (unknown) not make her (units (u nknown) date) stomach sick. I unknown) hope you start feeling better soon. If use are (unknown) (no (unknown) (unknown) of a 5 year (units (un known) date) intrauterine unknown) device. Patient denies any fever, nausea or vomiting, (unknown) (no (unknown) (unknown) of today's note (units (unknown) date) if your PCP is in unknown) our system (unknown) (no (unknown) (unknown) os, patient has (units (unknown) date) significant unknown) tenderness with exam, dark brown vaginal discharge (unknown) (no (unknown) (unknown) pain, and 10 days (units (unknown) date) of doxycycline unknown) b.i.d.. Will follow up on cultures and vaginal (unknown) (no (unknown) (unknown) pelvic pain this (units (unknown) date) started last unknown) night, with vaginal bleeding and cramping which (unknown) (no (unknown) (unknown) persistent (units (unk nown) date) vomiting or other unknown) bothersome symptoms] (unknown) (no (unknown) (unknown) place because she (units (unknown) date) does not know why unknown) she would have pain otherwise. (unknown) (no (unknown) (unknown) prednisone 20 mg (units (unknown) date) tablet 40 mg PO unknown) DAILY #14 tab 07/08/21 (unknown) (no (unknown) (unknown) prednisone 20 mg (units (unknown) date) tablet 40 mg PO Q unknown) DAY 4 Days #0 tab 12/05/17 (unknown) (no (unknown) (unknown) previously grew (units (unknown) date) group B strep from unknown) her urine, UA today his pending. Wet prep (unknown) (no (unknown) (unknown) sexually active. (units (unknown) date) test was unknown) negative, pelvic exam completed with (unknown) (no (unknown) (unknown) specimens. (units (unkn own) date) Discussion with unknown) patient about safety and if she has any concerns for (unknown) (no (unknown) (unknown) still having (units (un known) date) symptoms after unknown) your antibiotics are complete, please follow-up with (unknown) (no (unknown) (unknown) tenderness in her (units (unknown) date) pelvic region, unknown) tenderness with pelvic exam with palpation of (unknown) (no (unknown) (unknown) tenderness with (units (unknown) date) exam, without unknown) guarding or rebound, patient complains of (unknown) (no (unknown) (unknown) that her vaginal (units (unknown) date) discharge is unknown) abnormal. She is concerned that her IUD is not in (unknown) (no (unknown) (unknown) this, she denies, (units (unknown) date) patient states unknown) that she is having consensual sex, and she is (unknown) (no (unknown) (unknown) to received full (units (unknown) date) treatment for STDs unknown) in the emergency department instead of (unknown) (no (unknown) (unknown) tobacco type: (units ( unknown) date) cigarettes and unknown) vaping (unknown) (no (unknown) (unknown) today shows (units (un known) date) moderate poly unknown) white blood cells without clue cells yeast or (unknown) (no (unknown) (unknown) topical ointment (units (unknown) date) unknown) (unknown) (no (unknown) (unknown) treat you for STDs (units (unknown) date) instead of wait unknown) for the cultures to grow out and have you get (unknown) (no (unknown) (unknown) treated in the (units (unknown) date) emergency unknown) department for bacterial vaginosis, chlamydia, (unknown) (no (unknown) (unknown) triamcinolone (units ( unknown) date) acetonide 0.5 % 1 unknown) applic TOPICAL TID #15 g 07/08/21 (unknown) (no (unknown) (unknown) up closely with (units (unknown) date) outpatient unknown) providers as instructed. Patient understands plan (unknown) (no (unknown) (unknown) vaginosis, 500 mg (units (unknown) date) of ceftriaxone, unknown) 1000 mg of p.o. azithromycin, Toradol for (unknown) (no (unknown) (unknown) waiting for (units (un known) date) culture results. unknown) Patient was given 2 g of Flagyl for bacterial (unknown) (no (unknown) (unknown) weakness (units (unkno wn) date) unknown) (unknown) (no (unknown) (unknown) wheezing, (units (unkn own) date) stridor, or rales. unknown) No retractions or tachypnea. (unknown) (no (unknown) (unknown) worse. Please (units (unknown) date) take doxycycline unknown) twice a day for the next 10 days. Today your Social History date description facility (no date) Smokes tobacco daily (finding) [facility] Vital Signs date measurement value units [id number] BMI BMI 21.2 kg/m2 [id number]+0000 BP_diastolic BP_diastolic 60 mm[H g] [id number]+0000 BP_systolic BP_systolic 120 mm[Hg] +0000 heart_rate heart_rate 99 /min +0000 height_metric height_metric 160.02 cm +0000 height_standard height_standard 63 in +0000 respiration_rate respiration_rate 18 /min +0000 temperature_metric temperature_metric 36.39 C +0000 temperature_standard temperature_standard 9 7.5 F +0000 weight_metric weight_metric 24.69 kg +0000 weight_standard weight_standard 54.43 lb
[2022-03-07 14:33] VITALS: BP 133/86
[2022-03-07] MEDS ORDERED: HYDROcod/ACETAM 5/325 MG TABLET PO STA (14:38)
[2022-03-07] MEDS ORDERED: IBUPROFEN 600 MG TABLET PO STA (14:38)
[2022-03-07] MEDS ORDERED: AMOX/CLAV 875 MG/125 MG TABLET PO STA (14:38)
--- NOTE | 2022-03-07 14:40 | ED Physician Documentation ---
History of Present Illness - Stated complaint Stated Complaint: L EAR - Chief complaint Chief Complaint: Heent - History obtained from History obtained from: Patient - Additonal information Additional information: Sudden onset left ear pain this morning that is severe while blowing her nose. She has been congested. No fevers. 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 : None HEENT: None Musculoskeletal: None Derm: Eczema - Past Surgical History Past Surgical History: No - Present Medications Home Medications: Ambulatory Orders Medication Instructions Recorded Confirmed Hydrocodone/Acetaminophen 1 - 2 each PO Q6H PRN #10 tablet 08/04/19 [Hydrocodon-Acetaminophen 5-325] metroNIDAZOLE [Flagyl] 500 mg PO BID #14 tablet 08/04/19 Amox/Clav 875/125 [Augmentin] 1 each PO Q12H #20 tablet 03/07/22 Guaifenesin/Pseudoephedrne HCl 1 each PO BID PRN #20 ea 03/07/22 [Mucinex D ER 600-60 mg Tablet] HYDROcod/ACETAM 5/325 [[place] 5/325] 1 - 2 tablet PO Q6H PRN #14 tablet 03/07/22 Ibuprofen [Motrin] 600 mg PO Q6H PRN #20 tab 03/07/22 - Allergies Allergies/Adverse Reactions: Allergies Allergy/AdvReac Type Severity Reaction Status Date / Time No Known Drug Allergies Allergy Verified 03/07/22 13:13 - Social History Does the pt smoke?: Yes Smoking Status: Current every day smoker Does the pt drink ETOH?: No Does the pt have substance abuse?: No - Immunizations Immunizations are current?: Yes - POLST Patient has POLST: No PD ED PE NORMAL - Vitals Vital signs reviewed: Yes - General General: Other (She appears uncomfortable) - HEENT HEENT: Pharynx benign, Other (Severe left otitis media) - Neck Neck: No bony TTP - Neuro Neuro: Alert and oriented X 3, Normal speech Results - Vitals Vitals: Vital Signs - 24 hr 03/07/22 03/07/22 13:13 14:32 Temperature 36.5 C 36.3 C L Heart Rate 90 116 H Respiratory 18 21 Rate Blood Pressure 123/81 H 133/86 H O2 Saturation 96 100 Oxygen O2 Source Room air Departure - Departure Disposition: 01 Home, Self Care Clinical Impression: Otitis Qualifiers: Laterality: left Qualified Code(s): H66.92 - Otitis media, unspecified, left ear Condition: Good Record reviewed to determine appropriate education?: Yes Instructions: ED Otitis Media Acute Adult Prescriptions: Amox/Clav 875/125 [Augmentin] 1 each PO Q12H #20 tablet Ibuprofen [Motrin] 600 mg PO Q6H PRN #20 tab PRN Reason: Pain Guaifenesin/Pseudoephedrne HCl [Mucinex D ER 600-60 mg Tablet] 1 each PO BID PRN #20 ea PRN Reason: congestion HYDROcod/ACETAM 5/325 [[place] 5/325] 1 - 2 tablet PO Q6H PRN #14 tablet PRN Reason: Pain Comments: I sent your prescriptions electronically [facility] [place]. As discussed it looks like you have a fairly severe left-sided ear infection. Drink plenty of fluids, and use the antibiotics and prescription decongestant. You should be better in a few days. Follow-up with your doctor in a week for recheck. Return for new or worsening symptoms. I am prescribing a short course of narcotic pain medication for you. These are potentially dangerous and addictive medications that should be used carefully. These medications may constipate you. Take an jjvc-gut-kzpthca stool softener (docusate) twice daily with plenty of water while taking these medications. If you go 24 hours without a bowel movement, take [id number] miralax, per package instructions. Do not drink or drive while taking these medications. If you received narcotic or sedating medications while in the emergency department, do not drive for 24 hours. Store this medication in a safe, secure place and out of reach of children. It is a violation of federal law to give or sell this medication to another person or to use in a manner other than prescribed. The ED will not refill narcotic prescriptions, including prescriptions lost or stolen. To dispose of unwanted medications: 1. The [facility] at [address] in [place] has a medication drop box. They accept prescription medications (in pill form) Thursday through Thursday 9:00 a.m. to 5:00 p.m. 2. The [facility] [employer] accepts prescription medications (in pill form only) for disposal year round. Call for more information. 3. Contact the [facility] for the next [facility] sponsored prescription drug collection event. , [phone], or [phone]; Note that many narcotic pain relievers also contain Tylenol/acetaminophen. Please ensure that your total dose of acetaminophen from all sources does not exceed 3 g (3000 mg) per day.
== END 2022-03-07 14:51 | disposition home or self-care (01) ==
LOC: ED 12:55
DX: H66.92 Otitis media, unspecified, left ear (principal); F17.200 Nicotine dependence, unspecified, uncomplicated
CPT/HCPCS: 99282; 99284; A9270

== ENCOUNTER 2023-06-25 02:08 | Emergency (ER) | payer MEDICAID ==
[2023-06-25 02:23] VITALS: BP 120/77; O2SAT 100
[2023-06-25] MEDS ORDERED: DEXAMETHASONE 10 MG/ML VIAL PO STA (02:37)
[2023-06-25] MEDS ORDERED: CHERRY SYRUP 10 ML UDC PO ONE (02:37)
--- NOTE | 2023-06-25 02:41 | ED Physician Documentation ---
History of Present Illness - Stated complaint Stated Complaint: COUGH/SOB - Chief complaint Chief Complaint: Resp - History obtained from History obtained from: Patient - Additonal information Additional information: 22yF, previously healthy, occasional cigarette smoker, p/w nonproductive cough, nasal and ear congestion X 2 weeks. denies fever. patient gets cp and soa with cough. 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 : None HEENT: None Musculoskeletal: None Derm: Eczema - Past Surgical History Past Surgical History: No - Present Medications Home Medications: Ambulatory Orders Medication Instructions Recorded Confirmed Hydrocodone/Acetaminophen 1 - 2 each PO Q6H PRN #10 tablet 08/04/19 [Hydrocodon-Acetaminophen 5-325] metroNIDAZOLE [Flagyl] 500 mg PO BID #14 tablet 08/04/19 Amox/Clav 875/125 [Augmentin] 1 each PO Q12H #20 tablet 03/07/22 Guaifenesin/Pseudoephedrne HCl 1 each PO BID PRN #20 ea 03/07/22 [Mucinex D ER 600-60 mg Tablet] HYDROcod/ACETAM 5/325 [[place] 5/325] 1 - 2 tab PO Q6H PRN #15 tablet 03/07/22 Ibuprofen [Motrin] 600 mg PO Q6H PRN #20 tab 03/07/22 - Allergies Allergies/Adverse Reactions: Allergies Allergy/AdvReac Type Severity Reaction Status Date / Time No Known Drug Allergies Allergy Verified 06/25/23 02:19 - Social History Does the pt smoke?: Yes Smoking Status: Current every day smoker Does the pt drink ETOH?: No Does the pt have substance abuse?: No - Immunizations Immunizations are current?: Yes - POLST Patient has POLST: No PD ED PE NORMAL - Vitals Vital signs reviewed: Yes - General General: Alert and oriented X 3, No acute distress, Well developed/nourished - HEENT HEENT: Atraumatic, PERRL, EOMI, Ears normal, Moist mucous membranes, Pharynx benign - Neck Neck: Supple, no meningeal sign - Cardiac Cardiac: RRR - Respiratory Respiratory: No respiratory distress, Clear bilaterally - Abdomen Abdomen: Non tender, Non distended - Derm Derm: Normal color, Warm and dry - Extremities Extremities: No deformity, No edema - Neuro Neuro: Alert and oriented X 3, No motor deficit, No sensory deficit Results - Vitals Vitals: Vital Signs - 24 hr 06/25/23 02:14 Temperature 36.6 C Heart Rate 88 Respiratory 18 Rate Blood Pressure 120/77 O2 Saturation 100 Oxygen O2 Source Room air PD Medical Decision Making - ED course ED course: 22yF presents with viral URI symptoms X 2 weeks, with benign vitals and exam. suspect chronic cough related to her smoking with superimposed acute viral syn drome. lungs are completely clear and o2 sat 100% with no history of fever therefore I doubt pneumonia as etiology. symptomatic care discussed. return precautions given. Departure - Departure Disposition: Home, Self Care Clinical Impression: Viral URI with cough Condition: Stable Instructions: ED Viral Syndrome Comments: You were seen in the emergency department for Viral upper respiratory virus symptoms (common cold). A nose swab was sent for viruses that you can view on your patient health portal in 3 to 4 hours. You should use phenylephrine or oxymetazoline nose spray to help with congestion in your nose, sinuses and ears. Use a cool mist humidifier at the bedside at night to help ease the cough. You can also use over the counter dextromethorphan as a cough suppressant. Please follow-up with a primary care provider (referral provided) and return to the emergency department if you have any new or worsening symptoms or other concerns.
[2023-06-25 03:32] LABS: B. PARAPERTUSSIS- RESP PCR PAN NOT DETECTED; B. PERTUSSIS- RESP PCR PANEL NOT DETECTED; C. PNEUMONIAE- RESP PCR PANEL NOT DETECTED; CORONAVIRUS 229E-RESP PCR NOT DETECTED; CORONAVIRUS HKU1-RESP PCR NOT DETECTED; CORONAVIRUS NL63-RESP PCR NOT DETECTED; CORONAVIRUS OC43-RESP PCR NOT DETECTED; HUMAN METAPNEUMOVIRUS NOT DETECTED; INFLUENZA A- RESP PCR PANEL NOT DETECTED; INFLUENZA B - RESP PCR PANEL NOT DETECTED; M. PNEUMONIAE- RESP PCR PANEL NOT DETECTED; PARAINFLUENZA VIRUS 1 NOT DETECTED; PARAINFLUENZA VIRUS 2 NOT DETECTED; PARAINFLUENZA VIRUS 3 NOT DETECTED; PARAINFLUENZA VIRUS 4 NOT DETECTED; RHINOVIRUS/ENTEROVIRUS DETECTED; RSV- RESP PCR PANEL NOT DETECTED; SARS-CoV-2 -RESP PCR PANEL NOT DETECTED
== END 2023-06-25 03:17 | disposition home or self-care (01) ==
LOC: ED 02:08
DX: J06.9 Acute upper respiratory infection, unspecified (principal); F17.210 Nicotine dependence, cigarettes, uncomplicated; Z20.822 Contact with and (suspected) exposure to COVID-19
CPT/HCPCS: 87633; 99283; A9270

== ENCOUNTER 2023-07-03 09:47 | Emergency (ER) | payer MEDICAID ==
[2023-07-03 10:13] VITALS: O2SAT 100
[2023-07-03 10:24] LABS: BASOPHILS # (AUTO) 0.1 10^3/uL (0.0-0.1); BASOPHILS % (AUTO) 0.4 %; EOSINOPHILS # (AUTO) 0.3 10^3/uL (0.0-0.7); EOSINOPHILS % (AUTO) 1.6 %; HCT - HEMATOCRIT 37.3 % (37.0-47.0); HGB - HEMOGLOBIN 12.5 g/dL (12.0-16.0); LYMPHOCYTES # (AUTO) 2.3 10^3/uL (1.5-3.5); LYMPHOCYTES % (AUTO) 13.4 %; MEAN CORPUSCULAR HEMOGLOBIN 29.7 pg (27.0-31.0); MEAN CORPUSCULAR HGB CONC 33.5 g/dL (32.0-36.0); MEAN CORPUSCULAR VOLUME 88.6 fL (81.0-99.0); MEAN PLATELET VOLUME 8.6 fL (7.9-10.8); MONOCYTES % (AUTO) 5.9 %; NEUTROPHILS # (AUTO) 13.4 10^3/uL (1.5-6.6); NEUTROPHILS % (AUTO) 78.3 %; PLT - PLATELET COUNT 330 10^3/uL (130-450); RED BLOOD COUNT 4.21 10^6/uL (4.20-5.40); RED CELL DISTRIBUTION WIDTH 13.1 % (12.0-15.0); WHITE BLOOD COUNT 17.1 x10^3/uL (4.8-10.8)
--- NOTE | 2023-07-03 10:41 | ED Physician Documentation ---
PD HPI FEMALE - Stated complaint Stated Complaint: ABD PX - Chief complaint Chief Complaint: Abd Pain - History obtained from History obtained from: Patient - History of Present Illness Timing - onset: How many days ago (several days, worsening) Timing - duration: Days Timing - details: Gradual onset, Still present, Waxing and waning (with more c onsistent and intense since last evening.) Associated symptoms: Vaginal bleeding, Vaginal discharge, Dysuria. No: Fever, Urinary frequency, Hematuria Contributing factors: IUD (for the past 4 years), Sexually active. 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 : None HEENT: None Musculoskeletal: None Derm: Eczema - Past Surgical History Past Surgical History: No - Present Medications Home Medications: Ambulatory Orders Medication Instructions Recorded Confirmed Hydrocodone/Acetaminophen 1 - 2 each PO Q6H PRN #10 tablet 08/04/19 [Hydrocodon-Acetaminophen 5-325] metroNIDAZOLE [Flagyl] 500 mg PO BID #14 tablet 08/04/19 Amox/Clav 875/125 [Augmentin] 1 each PO Q12H #20 tablet 03/07/22 Guaifenesin/Pseudoephedrne HCl 1 each PO BID PRN #20 ea 03/07/22 [Mucinex D ER 600-60 mg Tablet] HYDROcod/ACETAM 5/325 [Gove 5/325] 1 - 2 tab PO Q6H PRN #15 tablet 03/07/22 Ibuprofen [Motrin] 600 mg PO Q6H PRN #20 tab 03/07/22 HYDROcod/ACETAM 5/325 [Gove 5/325] 1 ea PO Q6H PRN #14 tablet 07/03/23 HYDROcod/ACETAM 5/325 [Gove 5/325] 1 ea PO Q8H PRN #14 tablet 07/03/23 Naproxen 500 mg PO BID #20 tab 07/03/23 Ondansetron Odt [Zofran] 4 mg TL Q6H PRN #10 tablet 07/03/23 cephALEXin [Keflex] 500 mg PO TID 5 Days #15 cap 07/03/23 metroNIDAZOLE [Flagyl] 250 mg PO TID 7 Days #20 tablet 07/03/23 - Allergies Allergies/Adverse Reactions: Allergies Allergy/AdvReac Type Severity Reaction Status Date / Time No Known Drug Allergies Allergy Verified 06/25/23 02:19 - Social History Does the pt smoke?: Yes Smoking Status: Current every day smoker Does the pt drink ETOH?: No Does the pt have substance abuse?: No - Immunizations Immunizations are current?: Yes - POLST Patient has POLST: No PD ED PE NORMAL - Vitals Vital signs reviewed: Yes - General General: Alert and oriented X 3, Well developed/nourished, Other (appears quite uncomfortable due to lower abd pain, more to the left. ) - Neck Neck: Supple, no meningeal sign, No adenopathy - Cardiac Cardiac: No murmur. No: RRR (tachycardic but regular. ) - Respiratory Respiratory: No respiratory distress, Clear bilaterally - Abdomen Abdomen: Normal bowel sounds, Soft, Non distended, No organomegaly - Female Female : Deferred - Rectal Rectal: Deferred - Back Back: No CVA TTP - Derm Derm: Normal color, Warm and dry Results - Vitals Vitals: Vital Signs - 24 hr 07/03/23 07/03/23 07/03/23 10:05 11:54 14:03 Temperature 37.2 C Heart Rate 119 H 88 96 Respiratory 20 18 18 Rate Blood Pressure 103/70 121/72 131/81 H O2 Saturation 100 100 100 Oxygen O2 Source Room air - Labs Labs: Laboratory Tests 07/03/23 07/03/23 07/03/23 10:20 10:20 10:43 WBC 17.1 H RBC 4.21 Hgb 12.5 Hct 37.3 MCV 88.6 MCH 29.7 MCHC 33.5 RDW 13.1 Plt Count 330 MPV 8.6 Neut # (Auto) 13.4 H Lymph # (Auto) 2.3 [place] # (Auto) 1.0 Eos # (Auto) 0.3 Baso # (Auto) 0.1 Absolute Nucleated RBC 0.00 Nucleated RBC % 0.0 Sodium 140 Potassium 3.9 Chloride 104 Carbon Dioxide 32 Anion Gap 4.0 L BUN 17 Creatinine 0.9 Estimated GFR (MDRD) 79 L Glucose 92 Calcium 9.6 Total Bilirubin 0.4 AST 14 ALT 11 Alkaline Phosphatase 42 Total Protein 7.1 Albumin 4.2 Globulin 2.9 Albumin/Globulin Ratio 1.4 Lipase 15 Urine Color Urine Clarity Urine pH Ur Specific [place] Urine Protein Urine Glucose (UA) Urine Ketones Urine Occult Blood Urine Nitrite Urine Bilirubin Urine Urobilinogen Ur Leukocyte Esterase Urine RBC Urine WBC Urine WBC Clumps Ur Squamous Epith Cells Amorphous Sediment Urine Bacteria Urine Mucus Ur Microscopic Review Urine Culture Comments Urine HCG, Qual NEGATIVE C. glabrata (PCR) C. krusei (PCR) Brooke species DNA Chlam trachomat DNA PCR N.gonorrhoeae DNA (PCR) T. vaginalis (PCR) Bact Vaginosis (PCR) 07/03/23 07/03/23 07/03/23 10:43 11:38 11:38 WBC RBC Hgb Hct MCV MCH MCHC RDW Plt Count MPV Neut # (Auto) Lymph # (Auto) [place] # (Auto) Eos # (Auto) Baso # (Auto) Absolute Nucleated RBC Nucleated RBC % Sodium Potassium Chloride Carbon Dioxide Anion Gap BUN Creatinine Estimated GFR (MDRD) Glucose Calcium Total Bilirubin AST ALT Alkaline Phosphatase Total Protein Albumin Globulin Albumin/Globulin Ratio Lipase Urine Color YELLOW Urine Clarity HAZY Urine pH 6.0 Ur Specific [place] 1.025 Urine Protein TRACE Urine Glucose (UA) NEGATIVE Urine Ketones NEGATIVE Urine Occult Blood NEGATIVE Urine Nitrite POSITIVE H Urine Bilirubin NEGATIVE Urine Urobilinogen 0.2 (NORMAL) Ur Leukocyte Esterase SMALL H Urine RBC None Seen Urine WBC >25 H Urine WBC Clumps PRESENT Ur Squamous Epith Cells FEW Squamous Amorphous Sediment Few Urine Bacteria Few Urine Mucus Moderate Strands Ur Microscopic Review INDICATED Urine Culture Comments INDICATED Urine HCG, Qual C. glabrata (PCR) NEGATIVE C. krusei (PCR) NEGATIVE [place]oke species DNA NEGATIVE Chlam trachomat DNA PCR NEGATIVE N.gonorrhoeae DNA (PCR) NEGATIVE T. vaginalis (PCR) NEGATIVE TNP Bact Vaginosis (PCR) POSITIVE A - Rads (name of study) pelvic US Relevant Findings:: Prelim report reviewed (US tech and report showing no acute process in ovaries, pelvis. No free fluid. multiple follicles. No cysts per se. IUD in place but lower uterine segment, but same location as prior US 2019. ), EMP independent interpretation of test PD Medical Decision Making - ED course Complexity details: reviewed results (US showing left ovary multiple follicles, no cyst per se. No free fluid. UA possible UTI. subsequently later, Vaginal testing results are available and showing BV. Will contact pt in AM and Rx also Flagyl in addition to Keflex for apparent UTI. NSAIDs and pain meds for pelbvic pain. ), considered differential (some dysuria sympotms. Some vaginal bleeding and pain. IUD in place for several years. Lower abd/pelvic pain without obvious cause. No cysts, free fluid, torsion. ), d/w patient Drug Therapy Requiring Monitoring for Toxicity: Given IV fluids, Toradol< Zofran, and dilaudid, with repeat dose of dilaudid as pain incread again prior to US and will have palpation with the US. Departure - Departure Disposition: Home, Self Care Clinical Impression: Left lower quadrant abdominal pain, Vaginal bleeding, UTI (urinary tract infec tion) Condition: Stable Record reviewed to determine appropriate education?: Yes Instructions: ED Pelvic Pain UKO, ED UTI Cystitis Female Follow-Up: [facility] [Provider Group] Prescriptions: cephALEXin [Keflex] 500 mg PO TID 5 Days #15 cap Naproxen 500 mg PO BID #20 tab HYDROcod/ACETAM 5/325 [Gove 5/325] 1 ea PO Q8H PRN #14 tablet PRN Reason: Pain HYDROcod/ACETAM 5/325 [Gove 5/325] 1 ea PO Q6H PRN #14 tablet PRN Reason: Pain Ondansetron Odt [Zofran] 4 mg TL Q6H PRN #10 tablet PRN Reason: Nausea / Vomiting Comments: Your ultrasound showed normal ovaries without any cysts, free fluid to suggest ruptured cyst or internal bleeding, and normal blood flow to the ovaries. The uterus appeared normal in structure. The IUD is in the lower aspect of the uterus/upper cervix. However it looks to be in the same position that it was on a prior ultrasound. Its possible the IUD was dislodged from the wall of the uterus and led to some bleeding and cramping pain. This should be short-term limited and improved. The urine test showed signs of a urinary tract infection. Hard to tell how much this is contributing to your current symptoms. We should treat with anti-inflammatories as well as an antibiotic. Add ondansetron for nausea and Tylenol every 4-6 hours if needed for pains with hydrocodone if needed for worse pain. I would anticipate improvement over the next 2 to 3 days with the above combination. Follow-up with the women's health if continued with cramping and intermittent bleeding in the future or if there is concern about the IUD position etc. I sent your prescriptions to your preferred pharmacy, [facility]. I am prescribing a short course of narcotic pain medication for you. These are potentially dangerous and addictive medications that should be used carefully. These medications may constipate you. Take an uiyq-shx-hnigtxa stool softener such as docusate twice daily with plenty of water while taking these medications. If you go 24 hours without a bowel movement, take muwz-sdd-ctsdpug MiraLAX, per package instructions. Do not drink or drive while taking these medications. If you received narcotic or sedating medications while in the emergency department do not drive for 24 hours. Store this medication in a safe, secure place and out of reach of children. It is a violation of federal law to give or sell this medication to another person or to use in a manner other than prescribed. The ED will not refill narcotic prescriptions, including prescriptions lost or stolen. You can dispose of unwanted medications at the [facility]'s office or at several pharmacies such as [facility]. Forms: PCP List Discharge Date/Time: 07/03/23 14:03
[2023-07-03 10:45] LABS: ALBUMIN 4.2 g/dL (3.2-5.5); ALBUMIN/GLOBULIN RATIO 1.4 (1.0-2.2); BILIRUBIN,TOTAL 0.4 mg/dL (0.2-1.0); CALCIUM 9.6 mg/dL (8.5-10.3); CREATININE 0.9 mg/dL (0.6-1.3); POTASSIUM 3.9 mmol/L (3.5-4.5); TOTAL PROTEIN 7.1 g/dL (6.4-8.9)
[2023-07-03 10:50] LABS: BILIRUBIN,URINE NEGATIVE (NEGATIVE); GLUCOSE, URINE (UA) NEGATIVE (NEGATIVE); KETONES,URINE (UA) NEGATIVE (NEGATIVE); LEUKOCYTE ESTERASE, URINE SMALL (NEGATIVE); NITRITE,URINE POSITIVE (NEGATIVE); OCCULT BLOOD,URINE NEGATIVE (NEGATIVE); PROTEIN,URINE TRACE mg/dL (NEGATIVE); UROBILINOGEN,URINE 0.2 (NORMAL) E.U./dL (NORMAL)
[2023-07-03 10:53] LABS: HCG UR QUAL NEGATIVE
[2023-07-03 10:54] LABS: CLARITY,URINE HAZY (CLEAR)
[2023-07-03] MEDS ORDERED: KETOROLAC 15 MG/ML VIAL IVP STA (10:59)
[2023-07-03] MEDS ORDERED: SODIUM CHLORIDE 0.9% 1,000 ML IV STA (10:59)
[2023-07-03] MEDS ORDERED: ONDANSETRON 4 MG/2 ML VIAL IVP STA (10:59)
[2023-07-03] MEDS ORDERED: HYDROmorphone 0.5 MG/0.5 ML SYRINGE IVP STA (11:00)
[2023-07-03 11:03] LABS: AMORPHOUS SEDIMENT,UR Few /LPF; BACTERIA,URINE Few /HPF (None Seen); MUCUS,URINE Moderate Strands; RBC,URINE None Seen /HPF (0-5); SQUAMOUS EPITHELIAL CELL,UR FEW Squamous (<= Few); WBC CLUMPS,URINE PRESENT; WBC,URINE >25 /HPF (0-5)
[2023-07-03] MEDS ORDERED: cefTRIAXone 1 GM VIAL IVP STA (11:57)
[2023-07-03] MEDS ORDERED: HYDROmorphone 1 MG/ML CARPUJECT IVP STA (11:57)
[2023-07-03 13:50] LABS: CHLAMYDIA TRACHOMATIS DNA NEGATIVE (NEGATIVE); NEISSERIA GONORRHOEAE DNA NEGATIVE (NEGATIVE)
[2023-07-03 14:08] VITALS: BP 131/81
--- NOTE | 2023-07-03 16:04 | Ultrasound Report ---
PROCEDURE: Pelvic w/Transvag+Doppler Comp INDICATIONS: pelvic pain, L; abrupt last night. Vag bldg TECHNIQUE: Real-time scanning was performed of the pelvic organs, with image documentation. Additional endovagi nal scanning was necessary due to incomplete visualization of the adnexal and endometrial structures by transabdominal scanning. Doppler interrogation was performed of the ovaries bilaterally. COMPARISON: 08/04/2019. FINDINGS: Uterus: Uterus is anteverted and normal in size at 7.1 x 2.5 x 4.2 cm. The myometrium is heterogene ous. The endometrium measures 3 mm in combined thickness. The IUD is ectopically located in the low er uterine segment/cervix, similar to 2019. No fibroids. Ovaries: The right ovary measures 3.4 x 2.1 x 3.1 cm, with a calculated ovarian volume of 11.6 cc. The left ovary measures 2.9 x 1.7 x 1.9 cm, with a calculated ovarian volume of 4.8 cc. Appropriate blood flow to the ovaries with Doppler interrogation. There are less than 12 follicles in the right ovary. There are greater than 12 follicles in the left ovary. No adnexal masses are seen. No cystic lesions measuring greater than 3 cm. Other: No pathologic free abdominal or pelvic fluid. IMPRESSION: 1. IUD ectopically located in the lower uterine segment/cervix. 2. Normal endometrial thickness. 3. There are greater than 12 follicles noted in the left ovary. This may potentially correlate with a clinical diagnosis of polycystic ovaries. Suggest correlation. Reviewed by: Fab Ghosh MD on 07/03/2023 3:13 PM PDT Approved by: Fab Ghosh MD on 07/03/2023 3:13 PM PDT Station ID: [id number]
[2023-07-03 17:15] LABS: BACTERIAL VAGINOSIS DNA POSITIVE (NEGATIVE); CANDIDA KRUSEI DNA NEGATIVE (NEGATIVE); TRICHOMONAS VAGINALIS DNA NEGATIVE (NEGATIVE)
[2023-07-03 17:16] LABS: CANDIDA GLABRATA DNA NEGATIVE (NEGATIVE); CANDIDA GROUP DNA NEGATIVE (NEGATIVE)
== END 2023-07-03 14:03 | disposition home or self-care (01) ==
LOC: ED 09:47
DX: N39.0 Urinary tract infection, site not specified (principal); N93.9 Abnormal uterine and vaginal bleeding, unspecified; R10.32 Left lower quadrant pain; F17.200 Nicotine dependence, unspecified, uncomplicated; Z97.5 Presence of (intrauterine) contraceptive device; Z79.899 Other long term (current) drug therapy
CPT/HCPCS: 36415; 76830; 76856; 80053; 81001; 81025; 81514; 83690; 85025; 87086; 87491; 87591; 93975; 96361; 96374; 96375; 96376; 99284; 99285; J1170; 81003; 87661

== ENCOUNTER 2023-11-05 18:38 | Emergency (ER) | payer MEDICAID ==
--- NOTE | 2023-11-05 19:51 | XRAY Report ---
PROCEDURE: Chest 2V INDICATIONS: Cough, rib pain TECHNIQUE: 2 views of the chest were acquired. COMPARISON: None. FINDINGS: Surgical changes and devices: None. Lungs and pleura: No dense consolidation or pleural effusion. Mediastinum: Normal heart size Bones and chest wall: No suspicious bony lesions. Overlying soft tissues appear unremarkable. IMPRESSION: No acute radiographic abnormality. Reviewed by: Florentino Gallegos MD on 11/05/2023 7:50 PM [facility] Approved by: Florentino Gallegos MD on 11/05/2023 7:50 PM [facility] Station ID: [id number]
[2023-11-05] MEDS: IBUPROFEN 800 MG TABLET PO STA (20:24)
[2023-11-05] MEDS: ACETAMINOPHEN 325 MG TABLET PO STA (20:24)
[2023-11-05] MEDS: predniSONE 20 MG TABLET PO STA (20:24)
[2023-11-05 20:27] LABS: B. PARAPERTUSSIS- RESP PCR PAN NOT DETECTED; B. PERTUSSIS- RESP PCR PANEL NOT DETECTED; C. PNEUMONIAE- RESP PCR PANEL NOT DETECTED; CORONAVIRUS 229E-RESP PCR NOT DETECTED; CORONAVIRUS HKU1-RESP PCR NOT DETECTED; CORONAVIRUS NL63-RESP PCR NOT DETECTED; CORONAVIRUS OC43-RESP PCR NOT DETECTED; HUMAN METAPNEUMOVIRUS NOT DETECTED; INFLUENZA A- RESP PCR PANEL NOT DETECTED; INFLUENZA B - RESP PCR PANEL NOT DETECTED; M. PNEUMONIAE- RESP PCR PANEL NOT DETECTED; PARAINFLUENZA VIRUS 1 NOT DETECTED; PARAINFLUENZA VIRUS 2 NOT DETECTED; PARAINFLUENZA VIRUS 3 NOT DETECTED; PARAINFLUENZA VIRUS 4 NOT DETECTED; RHINOVIRUS/ENTEROVIRUS NOT DETECTED; RSV- RESP PCR PANEL NOT DETECTED; SARS-CoV-2 -RESP PCR PANEL NOT DETECTED
[2023-11-05] MEDS: IPRATROPIUM/ALBUTEROL 3 ML NEB INH STA (20:40)
[2023-11-05 20:53] LABS: BILIRUBIN,URINE NEGATIVE (NEGATIVE); GLUCOSE, URINE (UA) NEGATIVE (NEGATIVE); KETONES,URINE (UA) NEGATIVE (NEGATIVE); LEUKOCYTE ESTERASE, URINE MODERATE (NEGATIVE); NITRITE,URINE POSITIVE (NEGATIVE); OCCULT BLOOD,URINE SMALL (NEGATIVE); PROTEIN,URINE 30 mg/dL (NEGATIVE); UROBILINOGEN,URINE 0.2 (NORMAL) E.U./dL (NORMAL)
[2023-11-05 20:56] LABS: HCG UR QUAL NEGATIVE
[2023-11-05 20:59] LABS: CLARITY,URINE CLOUDY (CLEAR)
[2023-11-05 21:15] LABS: BACTERIA,URINE Many /HPF (None Seen); SQUAMOUS EPITHELIAL CELL,UR NONE SEEN (<= Few); WBC CLUMPS,URINE PRESENT; WBC,URINE >25 /HPF (0-5)
[2023-11-05] MEDS: HYDROmorphone 1 MG/ML CARPUJECT IVP STA (21:40)
[2023-11-05] MEDS: SODIUM CHLORIDE 0.9% 1,000 ML IV STA (21:40)
[2023-11-05] MEDS: cefTRIAXone 1 GM VIAL IVP STA (21:40)
[2023-11-05 21:41] LABS: BASOPHILS % (AUTO) 0.4 %; EOSINOPHILS # (AUTO) 0.1 10^3/uL (0.0-0.7); EOSINOPHILS % (AUTO) 0.9 %; HCT - HEMATOCRIT 34.5 % (37.0-47.0); HGB - HEMOGLOBIN 11.5 g/dL (12.0-16.0); LYMPHOCYTES # (AUTO) 1.3 10^3/uL (1.5-3.5); LYMPHOCYTES % (AUTO) 13.2 %; MEAN CORPUSCULAR HEMOGLOBIN 29.3 pg (27.0-31.0); MEAN CORPUSCULAR HGB CONC 33.3 g/dL (32.0-36.0); MEAN CORPUSCULAR VOLUME 87.8 fL (81.0-99.0); MEAN PLATELET VOLUME 9.5 fL (7.9-10.8); MONOCYTES # (AUTO) 0.8 10^3/uL (0.0-1.0); MONOCYTES % (AUTO) 8.2 %; NEUTROPHILS # (AUTO) 7.6 10^3/uL (1.5-6.6); NEUTROPHILS % (AUTO) 77.1 %; PLT - PLATELET COUNT 224 10^3/uL (130-450); RED BLOOD COUNT 3.93 10^6/uL (4.20-5.40); RED CELL DISTRIBUTION WIDTH 12.8 % (12.0-15.0); WHITE BLOOD COUNT 9.8 x10^3/uL (4.8-10.8)
[2023-11-05 21:54] LABS: ALBUMIN 3.9 g/dL (3.2-5.5); ALBUMIN/GLOBULIN RATIO 1.2 (1.0-2.2); ALKALINE PHOSPHATASE 36 IU/L (42-121); ALT ALANINE AMINOTRANSFERASE 17 IU/L (10-60); AST ASPARTATE AMINOTRANSFERASE 17 IU/L (10-42); BILIRUBIN,TOTAL 0.4 mg/dL (0.2-1.0); BUN - BLOOD UREA NITROGEN 15 mg/dL (6-20); CALCIUM 9.2 mg/dL (8.5-10.3); CARBON DIOXIDE - CO2 24 mmol/L (21-32); CHLORIDE 104 mmol/L (101-111); CREATININE 0.8 mg/dL (0.6-1.3); GFR - MDRD 90 (>89); GLUCOSE 145 mg/dL (74-104); POTASSIUM 3.7 mmol/L (3.5-4.5); SODIUM 136 mmol/L (135-145); TOTAL PROTEIN 7.1 g/dL (6.4-8.9)
--- NOTE | 2023-11-05 22:20 | ED Physician Documentation ---
History of Present Illness - Stated complaint Stated Complaint: SOA,RIB PX - Chief complaint Chief Complaint: General - History obtained from History obtained from: Patient - History of Present Illness Timing: How many days ago (4) Pain level max: 7 Pain level now: 7 - Additonal information Additional information: Patient is a 23-year-old female who presents to the emergency department with bilateral flank pain. She has had a cough, feels like she cannot take a deep breath, subjective fever and chills. Body aches. Denies any vaginal bleeding or discharge. Denies any dysuria. No change in sexual partners. She states she had asthma as a child and use inhalers but does not use one now. She does not feel short of breath more feels pain in her flank when she takes a deep breath. Denies any possibility of . No vomiting. Has not taken anything for the pain today. No IV drug use. 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 HEENT: None Musculoskeletal: None Derm: Eczema - Past Surgical History Past Surgical History: No - Present Medications Home Medications: Ambulatory Orders Medication Instructions Recorded Confirmed Hydrocodone/Acetaminophen 1 - 2 each PO Q6H PRN #10 tablet 08/04/19 [Hydrocodon-Acetaminophen 5-325] metroNIDAZOLE [Flagyl] 500 mg PO BID #14 tablet 08/04/19 Amox/Clav 875/125 [Augmentin] 1 each PO Q12H #20 tablet 03/07/22 Guaifenesin/Pseudoephedrne HCl 1 each PO BID PRN #20 ea 03/07/22 [Mucinex D ER 600-60 mg Tablet] HYDROcod/ACETAM 5/325 [[place] 5/325] 1 - 2 tab PO Q6H PRN #15 tablet 03/07/22 Ibuprofen [Motrin] 600 mg PO Q6H PRN #20 tab 03/07/22 HYDROcod/ACETAM 5/325 [[place] 5/325] 1 ea PO Q6H PRN #14 tablet 07/03/23 HYDROcod/ACETAM 5/325 [[place] 5/325] 1 ea PO Q8H PRN #14 tablet 07/03/23 Naproxen 500 mg PO BID #20 tab 07/03/23 Ondansetron Odt [Zofran] 4 mg TL Q6H PRN #10 tablet 07/03/23 cephALEXin [Keflex] 500 mg PO TID 5 Days #15 cap 07/03/23 metroNIDAZOLE [Flagyl] 250 mg PO TID 7 Days #20 tablet 07/03/23 Cefpodoxime Proxetil [Vantin] 100 mg PO Q12H #20 tablet 11/05/23 Ondansetron Odt [Zofran] 4 mg TL Q6H PRN #10 tablet 11/05/23 oxyCODONE [Roxicodone] 5 - 10 mg PO Q6H PRN #14 tablet 11/05/23 MDD 6 - Allergies Allergies/Adverse Reactions: Allergies Allergy/AdvReac Type Severity Reaction Status Date / Time No Known Drug Allergies Allergy Verified 11/05/23 19:16 - Social History Does the pt smoke?: Yes Smoking Status: Current every day smoker Does the pt drink ETOH?: No Does the pt have substance abuse?: No - Immunizations Immunizations are current?: Yes - POLST Patient has POLST: No PD ED PE NORMAL - Vitals Vital signs reviewed: Yes - General General: Alert and oriented X 3, No acute distress - HEENT HEENT: PERRL, Ears normal, Moist mucous membranes, Pharynx benign - Neck Neck: Supple, no meningeal sign - Cardiac Cardiac: RRR, Strong equal pulses - Respiratory Respiratory: No respiratory distress, Clear bilaterally - Abdomen Abdomen: Soft, Non tender, Non distended - Back Back: Other (Bilateral CVA tenderness) - Derm Derm: Warm and dry - Extremities Extremities: No edema - Neuro Neuro: Alert and oriented X 3 - Psych Psych: Normal mood, Normal affect Results - Vitals Vitals: Vital Signs - 24 hr 11/05/23 11/05/23 11/05/23 19:10 20:40 21:21 Temperature 37.7 C Heart Rate 116 H 119 H 118 H Respiratory 16 34 H 20 Rate Blood Pressure 123/79 O2 Saturation 99 97 Oxygen O2 Source Room air - Labs Labs: Laboratory Tests 11/05/23 11/05/23 11/05/23 19:17 20:46 20:46 WBC RBC Hgb Hct MCV MCH MCHC RDW Plt Count MPV Neut # (Auto) Lymph # (Auto) [place] # (Auto) Eos # (Auto) Baso # (Auto) Absolute Nucleated RBC Nucleated RBC % Sodium Potassium Chloride Carbon Dioxide Anion Gap BUN Creatinine Estimated GFR (MDRD) Glucose Lactic Acid Calcium Total Bilirubin AST ALT Alkaline Phosphatase Total Protein Albumin Globulin Albumin/Globulin Ratio Lipase Urine Color YELLOW Urine Clarity CLOUDY Urine pH 6.0 Ur Specific [place] 1.015 Urine Protein 30 H Urine Glucose (UA) NEGATIVE Urine Ketones NEGATIVE Urine Occult Blood SMALL H Urine Nitrite POSITIVE H Urine Bilirubin NEGATIVE Urine Urobilinogen 0.2 (NORMAL) Ur Leukocyte Esterase MODERATE H Urine RBC 6-10 H Urine WBC >25 H Urine WBC Clumps PRESENT Ur Squamous Epith Cells NONE SEEN Urine Bacteria Many H Ur Microscopic Review INDICATED Urine Culture Comments INDICATED Urine HCG, Qual NEGATIVE Nasal Adenovirus (PCR) NOT DETECTED Nasal B. parapertussis DNA (PCR) NOT DETECTED Nasal Coronavir 229E PCR NOT DETECTED Nasal Coronavir HKU1 PCR NOT DETECTED Nasal Coronavir NL63 PCR NOT DETECTED Nasal Coronavir OC43 PCR NOT DETECTED Nasal Enterovir/Rhinovir PCR NOT DETECTED Nasal Influenza B PCR NOT DETECTED Nasal Influenza A PCR NOT DETECTED Nasal Parainfluen 1 PCR NOT DETECTED Nasal Parainfluen 2 PCR NOT DETECTED Nasal Parainfluen 3 PCR NOT DETECTED Nasal Parainfluen 4 PCR NOT DETECTED Nasal RSV (PCR) NOT DETECTED Nasal B.pertussis DNA PCR NOT DETECTED Nasal C.pneumoniae (PCR) NOT DETECTED Nic Human Metapneumo PCR NOT DETECTED Nasal M.pneumoniae (PCR) NOT DETECTED Nasal SARS-CoV-2 (PCR) NOT DETECTED 11/05/23 11/05/23 11/05/23 21:35 21:35 21:35 WBC 9.8 RBC 3.93 L Hgb 11.5 L Hct 34.5 L MCV 87.8 MCH 29.3 MCHC 33.3 RDW 12.8 Plt Count 224 MPV 9.5 Neut # (Auto) 7.6 H Lymph # (Auto) 1.3 L [place] # (Auto) 0.8 Eos # (Auto) 0.1 Baso # (Auto) 0.0 Absolute Nucleated RBC 0.00 Nucleated RBC % 0.0 Sodium 136 Potassium 3.7 Chloride 104 Carbon Dioxide 24 Anion Gap 8.0 BUN 15 Creatinine 0.8 Estimated GFR (MDRD) 90 Glucose 145 H Lactic Acid 1.1 Calcium 9.2 Total Bilirubin 0.4 AST 17 ALT 17 Alkaline Phosphatase 36 L Total Protein 7.1 Albumin 3.9 Globulin 3.2 Albumin/Globulin Ratio 1.2 Lipase < 10 L Urine Color Urine Clarity Urine pH Ur Specific [place] Urine Protein Urine Glucose (UA) Urine Ketones Urine Occult Blood Urine Nitrite Urine Bilirubin Urine Urobilinogen Ur Leukocyte Esterase Urine RBC Urine WBC Urine WBC Clumps Ur Squamous Epith Cells Urine Bacteria Ur Microscopic Review Urine Culture Comments Urine HCG, Qual Nasal Adenovirus (PCR) Nasal B. parapertussis DNA (PCR) Nasal Coronavir 229E PCR Nasal Coronavir HKU1 PCR Nasal Coronavir NL63 PCR Nasal Coronavir OC43 PCR Nasal Enterovir/Rhinovir PCR Nasal Influenza B PCR Nasal Influenza A PCR Nasal Parainfluen 1 PCR Nasal Parainfluen 2 PCR Nasal Parainfluen 3 PCR Nasal Parainfluen 4 PCR Nasal RSV (PCR) Nasal B.pertussis DNA PCR Nasal C.pneumoniae (PCR) Nic Human Metapneumo PCR Nasal M.pneumoniae (PCR) Nasal SARS-CoV-2 (PCR) - Rads (name of study) Chest x-ray Relevant Findings:: Final report received, See rad report PD Medical Decision Making - ED course Complexity details: reviewed results, re-evaluated patient, considered differential, d/w patient ED course: No acute findings on chest tray. White blood cell count is normal. Lactate is normal. Does have a mild anemia. Her urinalysis appears consistent with UTI and bilateral flank pain with bodyaches and chills concerning for pyelonephritis. Given IV normal saline, IV Dilaudid, IV Rocephin. We will place on cefpodoxime for home. Will place on pain medication as well. Patient feels much better after IV fluids and IV pain medication. She will return if she fails to improve as expected in the next 24 to 48 hours. No evidence of sepsis at this time. Patient counseled regarding signs and symptoms for which I believe and urgent re-evaluation would be necessary. Patient with good understanding of and agreement to plan and is comfortable going home at this time This document was made in part using voice recognition software. While efforts are made to proofread this document, sound alike and grammatical errors may occur. Departure - Departure Disposition: 01 Home, Self Care Clinical Impression: Pyelonephritis, Viral URI Condition: Good Instructions: ED Kidney Infec Female, ED Viral Syndrome Follow-Up: your,doctor in 3 days [Other] Prescriptions: oxyCODONE [Roxicodone] 5 - 10 mg PO Q6H PRN #14 tablet MDD 6 PRN Reason: pain Cefpodoxime Proxetil [Vantin] 100 mg PO Q12H #20 tablet Ondansetron Odt [Zofran] 4 mg TL Q6H PRN #10 tablet PRN Reason: Nausea / Vomiting Comments: Take all antibiotics until gone. Please return if you worsen. You appear to have a kidney infection today. You were given IV fluids, pain medication and IV antibiotics. Please follow-up with your doctor in 3 days for recheck, please return here for worsening pain, fevers, or other new or worrisome symptoms. Your prescriptions were sent to [facility] in [place]. I am prescribing a short course of narcotic pain medication for you. These are potentially dangerous and addictive medications that should be used carefully. These medications may constipate you. Take an sfal-aoa-ryoshjl stool softener (docusate) twice daily with plenty of water while taking these medications. If you go 24 hours without a bowel movement, take nryz-hap-dkhcozf miralax, per package instructions. Do not drink or drive while taking these medications. If you received narcotic or sedating medications while in the emergency department, do not drive for 24 hours. Store this medication in a safe, secure place and out of reach of children. It is a violation of federal law to give or sell this medication to another person or to use in a manner other than prescribed. The ED will not refill narcotic prescriptions, including prescriptions lost or stolen. To dispose of unwanted medications: 1. [facility] [address] [facility] [facility] in [place] has a medication drop box. They accept prescription medications (in pill form) Thursday through Thursday 9:00 a.m. to 5:00 p.m. 2. The [facility] [employer] accepts prescription medications (in pill form only) for disposal year round. Call for more info rmation. 3. Contact the [facility] for the next [facility] sponsored prescription drug collection event. , [phone], or [phone]; Forms: PCP List
[2023-11-05 22:22] LABS: LIPASE < 10 U/L (11-82)
[2023-11-05] MEDS: oxyCODONE 5 MG TABLET PO STA (22:31)
[2023-11-05 22:44] VITALS: BP 114/76; O2SAT 98
--- NOTE | 2023-11-06 09:42 | ED Physician Documentation ---
ED Addendum - Addendum Addendum: 11/06/23 09:41 Received call from [facility] pharmacy pharmacist that cefpodoxime is not covered by patient's insurance. There do know that cephalexin would be covered so we will change to Cephalexin 500 mg p.o. 4 times daily.
--- NOTE | 2023-11-08 18:32 | ED Physician Documentation ---
ED Addendum - Addendum Addendum: 11/08/23 18:32 Culture reviewed, he was sent home on cefpodoxime which is appropriate.
== END 2023-11-05 22:38 | disposition home or self-care (01) ==
LOC: ED 18:38
DX: N12 Tubulo-interstitial nephritis, not specified as acute or chronic (principal); J06.9 Acute upper respiratory infection, unspecified; D64.9 Anemia, unspecified; Z79.899 Other long term (current) drug therapy; F17.200 Nicotine dependence, unspecified, uncomplicated
CPT/HCPCS: 36415; 71046; 80053; 81001; 81025; 83605; 83690; 85025; 87040; 87086; 87181; 87633; 94640; 94664; 96374; 99284; A9270; J1170; J7512; 81003

== ENCOUNTER 2024-01-12 08:00 | Outpatient (CLI) | payer MEDICAID ==
[2024-01-12 19:31] LABS: BACTERIAL VAGINOSIS DNA POSITIVE (NEGATIVE); CANDIDA GLABRATA DNA NEGATIVE (NEGATIVE); CANDIDA GROUP DNA POSITIVE (NEGATIVE); CANDIDA KRUSEI DNA NEGATIVE (NEGATIVE); TRICHOMONAS VAGINALIS DNA NEGATIVE (NEGATIVE)
[2024-01-12 23:09] LABS: CHLAMYDIA TRACHOMATIS DNA NEGATIVE (NEGATIVE); NEISSERIA GONORRHOEAE DNA NEGATIVE (NEGATIVE)
== END 2024-01-12 23:59 | disposition home or self-care (01) ==
LOC: LAB.N 08:00
PROVIDERS: ATTEND Physician Assistant Medical
DX: D72.829 Elevated white blood cell count, unspecified (principal); N89.8 Other specified noninflammatory disorders of vagina; R82.81 Pyuria
CPT/HCPCS: 81514; 87077; 87086; 87181; 87491; 87591; 87661